=== PATIENT | female | born 1990 | race Caucasian/White ===

== ENCOUNTER 2016-10-11 16:11 | Emergency (ER) | payer MEDICAID ==
[~2016-10-11] VITALS: Ht 165.1 cm; Wt 79.4 kg
[2016-10-11 16:42] LABS: NEG OBC UR NEG; POS OBC UR POS
--- NOTE | 2016-10-11 16:55 | ED.ADGEN ---
Past Medical History Past Medical History: Asthma, Other Additional Past Medical Histor: SEASONAL ALLERGIES Past Surgical History: Alcohol Use: None Drug Use: None Adult General Chief Complaint Chief Complaint: PELVIC PAIN HPI HPI Patient is a 25 year old woman, , history of previous miscarriage, and of infant at 3 days, anemia, who presents to the emergency department with a complaint of abdominal pain and positive for easy test. Patient states that she had a positive test on . States that her last menstrual period was September 03, she has been actively trying to get . She denies any bleeding, states that yesterday she is experiencing abdominal cramping was coming or going in the lower quadrant, states became acutely worse today, located in the central region and radiating up both sides of her abdomen , denies any nausea or vomiting, chest pain or shortness breath, any weakness or tingling, any injuries, any discharge or drainage, any concerns for STI exposures. She states she's been experiencing nausea at the same time, and some lightheadedness, no vomiting, no diarrhea, has been feeling "hot and cold". Is afebrile in the emergency department. No syncope. No urinary complaints. She states that she is actively trying to set up appointments with an OB here at [place], but she's been having difficulty with her insurance. She is currently taking vitamins and iron. Review of Systems Review of Systems Constitutional: Denies fever or chills. [] Eyes: Denies change in visual acuity. [] HENT: Denies nasal congestion or sore throat. [] Respiratory: Denies cough or shortness of breath. [] Cardiovascular: Denies chest pain or edema. [] GI: Denies vomiting, bloody stools or diarrhea. [] Complaining of abdominal pain, cramping, ankle and lower quadrants, associated with nausea. : Denies dysuria. [] Musculoskeletal: Denies back pain or joint pain. [] Integument: Denies rash. [] Neurologic: Denies headache, focal weakness or sensory changes. [] Endocrine: Denies polyuria or polydipsia. [] Lymphatic: Denies swollen glands. [] Psychiatric: Denies depression or anxiety. [] Current Medications Current Medications Current Medications Medications (Trade) Dose Ordered Sig/Segun Start Time Stop Time Status Last Admin Dose Admin Metronidazole (Flagyl) 500 mg 1X ONCE 10/11/16 18:45 10/11/16 18:46 DC 10/11/16 18:52 500 MG Nitrofurantoin Macrocrystals (Macrobid) 100 mg 1X ONCE 10/11/16 18:45 10/11/16 18:46 DC 10/11/16 18:51 100 MG Sodium Chloride (Iv Sodium Chloride 0.9% 1000ml Bag) 1,000 ml @ 1,000 mls/hr Q1H 10/11/16 17:00 10/11/16 17:59 DC 10/11/16 17:48 1,000 MLS/HR Allergies Allergies Allergies Coded Allergies Type Severity Reaction Last Updated Verified Penicillins Allergy Intermediate 10/11/16 Yes cefaclor Allergy Intermediate 10/11/16 Yes Physical Exam Physical Exam Constitutional: Well developed, well nourished, no acute distress, non-toxic appearance. [] HENT: Normocephalic, atraumatic, bilateral external ears normal, oropharynx moist, no oral exudates, nose normal. [] Eyes: PERRLA, EOMI, conjunctiva normal, no discharge. [] Neck: Normal range of motion, no tenderness, supple, no stridor. [] Cardiovascular:Heart rate regular rhythm, no murmur, S1, S2, rubs or gallops. [] Lungs & Thorax: Bilateral breath sounds clear to auscultation, no wheezing, rhonchi, rales. No chest or crepitus or tenderness. [] Abdomen: Bowel sounds normal, soft, mild tenderness palpation in the suprapubic pelvic region, no rebound, rigidity, no guarding, no masses, no pulsatile masses. [] Skin: Warm, dry, no erythema, no rash. [] Back: No tenderness, no CVA tenderness. [] Extremities: No tenderness, no cyanosis, no clubbing, ROM intact, no edema. [] Neurologic: Alert and oriented X 3, normal motor function, normal sensory function, no focal deficits noted. [] Psychologic: Affect normal, judgement normal, mood normal. [] Pelvic examination: External examination is unremarkable, patient with closed os on bimanual examination, mild tenderness palpation in the left adnexal region , no masses palpated. Speculum examination reveals a normal-appearing cervix with a small mount of white discharge. Specimens taken without issue. Current Patient Data Vital Signs Vital Signs Date Time Temp Pulse Resp B/P Pulse Ox O2 Delivery O2 Flow Rate FiO2 10/11/16 19:30 96 128/71 96 Room Air 10/11/16 18:55 18 10/11/16 16:15 97.9 97.9 Lab Values Laboratory Tests Test 10/11/16 16:15 10/11/16 17:20 Urine Collection Type Unknown Urine Color Yellow Urine Clarity Clear Urine pH 6.0 Urine Specific [place] <=1.005 Urine Protein Negativemg/dL (NEG-TRACE) Urine Glucose (UA) Negativemg/dL (NEG) Urine Ketones (Stick) Negativemg/dL (NEG) Urine Blood Negative (NEG) Urine Nitrite Positive (NEG) Urine Bilirubin Negative (NEG) Urine Urobilinogen Dipstick 0.2mg/dL (0.2 mg/dL) Urine Leukocyte Esterase Negative (NEG) Urine RBC 0/HPF (0-2) Urine WBC Occ/HPF (0-4) Urine Squamous Epithelial Cells Few/LPF Urine Bacteria Moderate/HPF (0-FEW) Urine Test Positive (NEG) White Blood Count 16.6x10^3/uL (4.0-11.0) H Red Blood Count 3.98x10^6/uL (3.50-5.40) Hemoglobin 12.6g/dL (12.0-15.5) Hematocrit 37.1% (36.0-47.0) Mean Corpuscular Volume 93fL (79-100) Mean Corpuscular Hemoglobin 32pg (25-35) Mean Corpuscular Hemoglobin Concent 34g/dL (31-37) Red Cell Distribution Width 12.7% (11.5-14.5) Platelet Count 308x10^3/uL (140-400) Neutrophils (%) (Auto) 71% (31-73) Lymphocytes (%) (Auto) 21% (24-48) L Monocytes (%) (Auto) 6% (0-9) Eosinophils (%) (Auto) 2% (0-3) Basophils (%) (Auto) 1% (0-3) Neutrophils # (Auto) 11.9x10^3uL (1.8-7.7) H Lymphocytes # (Auto) 3.4x10^3/uL (1.0-4.8) Monocytes # (Auto) 0.9x10^3/uL (0.0-1.1) Eosinophils # (Auto) 0.3x10^3/uL (0.0-0.7) Basophils # (Auto) 0.1x10^3/uL (0.0-0.2) Maternal Serum HCG Beta Subunit 7136mIU/mL (0-6) H Sodium Level 140mmol/L (136-145) Potassium Level 3.3mmol/L (3.5-5.1) L Chloride Level 102mmol/L (98-107) Carbon Dioxide Level 26mmol/L (21-32) Anion Gap 12 (6-14) Blood Urea Nitrogen 6mg/dL (7-20) L Creatinine 0.7mg/dL (0.6-1.0) Estimated GFR (Cockcroft-Gault) 103.7 BUN/Creatinine Ratio 9 (6-20) Glucose Level 106mg/dL (70-99) H Calcium Level 9.4mg/dL (8.5-10.1) Total Bilirubin 0.3mg/dL (0.2-1.0) Aspartate Amino Transferase (AST) 22U/L (15-37) Alanine Aminotransferase (ALT) 24U/L (14-59) Alkaline Phosphatase 66U/L (46-116) Total Protein 8.4g/dL (6.4-8.2) H Albumin 3.8g/dL (3.4-5.0) Albumin/Globulin Ratio 0.8 (1.0-1.7) L Laboratory Tests 10/11/16 17:20 Laboratory Tests 10/11/16 17:20 Microbiology 10/11/16 Wet Prep - Final, Complete EKG EKG Not indicated. [] Radiology/Procedures Radiology/Procedures [] [facility] [address] [place] [address] IMAGING REPORT Signed PATIENT: GREGORIO WEBB ACCOUNT: [id number] : 1990 LOCATION: ER AGE: 25 SEX: F EXAM STATUS: REG ER ORD. PHYSICIAN: RODRIGUEZ OLIVER DO REASON: Abd pain/preg PROCEDURE: OB <14 WKS W/TV PROCEDURE First trimester OB ultrasound. HISTORY Pelvic pain. TECHNIQUE Transabdominal imaging was initially performed. Transvaginal imaging was also performed to better evaluate the uterus. COMPARISON None. FINDINGS There is a bicornuate uterus. There is a potential gestational sac in the left uterine horn with mean sac diameter of 0.51 centimeters corresponding to a gestational age of 5 weeks 2 days. There appears to be a trophoblastic response. However, no pole, heart tones, or yolk sac are identified. There is no evidence of an implantation bleed. Endometrium appears thickened in the right uterine horn, 15 millimeters. Both maternal ovaries are visualized and grossly unremarkable. There is no free pelvic fluid. Exam is interpreted without HCG level provided. IMPRESSION Potential gestational sac measuring 5 weeks 2 days for an BHARATH by ultrasound of June 11, 2017. However, no pole or heart tones are identified. Correlation with HCG would be of benefit. Serial HCG and short term follow-up ultrasound may be of benefit. Electronically signed by: Varghese Foote MD (Oct 11, 2016 17:39:29) DICTATED and SIGNED BY: VARGHESE FOOTE MD DATE: 10/11/16 1739 CC: RODRIGUEZ OLIVER DO; NO PCP ~ Course & Med Decision Making Course & Med Decision Making Pertinent Labs and Imaging studies reviewed. (See chart for details) Patient with closed os on examination, no bleeding, positive for bacterial vaginosis, no other concerning findings identified. Patient with ultrasound revealed a 5 week 2 day gestational size sac, without pole or heart tones identified, however beta hCG is 7136, correlates with a potentially early her . Based on these findings, I contacted OB on-call, Dr. Marsh, who does have a clinic at [facility] one day a week. She recommends the patient receive beta Quant testing repeat in 48 hours, for follow-up with OB. I did discuss this with patient, patient was also given treatment for metronidazole, first dose of by mouth in the ED without issue. Patient to continue taking her vitamins and her iron, to follow-up in 2 days using the prescription given to her in the ED for repeat beta quadrant, patient does want to follow up at [facility], therefore she was given the contact information for the office of Dr. Pitt, as he is primarily located at [facility], patient is in the process of switching her insurance, will be able to discuss these issues with the office if problems arise of switching her insurance. She was given clear and detailed return instructions with which she voiced understanding and agreement, discharged home in stable condition with plan as above. Dragon Disclaimer Dragon Disclaimer This electronic medical record was generated, in whole or in part, using a voice recognition dictation system. Departure Impression: Primary Impression: Abdominal pain during Additional Impression: Bacterial vaginosis Disposition: HOME, SELF-CARE Condition: IMPROVED Scripts Metronidazole (Flagyl)500 Mg Tablet1 Tab PO BID #14 TAB Prov:RODRIGUEZ OLIVER DO 10/11/16 Nitrofurantoin Macrocrystal (Nitrofurantoin)100 Mg Capsule1 Cap PO BID #14 CAP Prov:RODRIGUEZ OLIVER DO 10/11/16 Problem Qualifiers Primary Impression: Abdominal pain during Trimester: first trimester Qualified Code: O26.891 - Other specified related conditions, first trimester RODRIGUEZ OLIVER DO Oct 11, 2016 16:55
[2016-10-11] MEDS ORDERED: IV NORMAL SALINE 1000ML BAG 1,000 ML IV SCH (17:00)
[2016-10-11 17:30] LABS: BASO # 0.1 x10^3/uL (0.0-0.2); BASO % 1 % (0-3); EOS % 2 % (0-3); HEMATOCRIT 37.1 % (36.0-47.0); HEMOGLOBIN 12.6 g/dL (12.0-15.5); LYMPH # 3.4 x10^3/uL (1.0-4.8); LYMPH % 21 % (24-48); MEAN CORPUSCULAR HEMOGLOBIN 32 pg (25-35); MEAN CORPUSCULAR HGB CONC 34 g/dL (31-37); MEAN CORPUSCULAR VOLUME 93 fL (79-100); MONO % 6 % (0-9); NEUT % 71 % (31-73); PLATELET COUNT 308 x10^3/uL (140-400); RED BLOOD COUNT 3.98 x10^6/uL (3.50-5.40); RED CELL DISTRIBUTION WIDTH 12.7 % (11.5-14.5); WHITE BLOOD COUNT 16.6 x10^3/uL (4.0-11.0)
--- NOTE | 2016-10-11 17:40 | RAD ---
PROCEDURE First trimester OB ultrasound. HISTORY Pelvic pain. TECHNIQUE Transabdominal imaging was initially performed. Transvaginal imaging was also performed to better evaluate the uterus. COMPARISON None. FINDINGS There is a bicornuate uterus. There is a potential gestational sac in the left uterine horn with mean sac diameter of 0.51 centimeters corresponding to a gestational age of 5 weeks 2 days. There appears to be a trophoblastic response. However, no pole, heart tones, or yolk sac are identified. There is no evidence of an implantation bleed. Endometrium appears thickened in the right uterine horn, 15 millimeters. Both maternal ovaries are visualized and grossly unremarkable. There is no free pelvic fluid. Exam is interpreted without HCG level provided. IMPRESSION Potential gestational sac measuring 5 weeks 2 days for an BHARATH by ultrasound of June 11, 2017. However, no pole or heart tones are identified. Correlation with HCG would be of benefit. Serial HCG and short term follow-up ultrasound may be of benefit. Electronically signed by: Varghese Foote MD (Oct 11, 2016 17:39:29)
[2016-10-11 17:41] LABS: BILIRUBIN,URINE NEGATIVE (NEG); GLUCOSE,URINE NEGATIVE (NEG); NITRITE,URINE POSITIVE (NEG); PROTEIN,URINE NEGATIVE (NEG-TRACE); UROBILINOGEN,URINE 0.2 mg/dL (0.2 mg/dL)
[2016-10-11 17:46] LABS: BACTERIA,URINE MODERATE /HPF (0-FEW); RBC,URINE 0 /HPF (0-2); SQUAMOUS EPITHELIAL CELL,UR FEW /LPF; WBC,URINE OCC /HPF (0-4)
[2016-10-11 17:58] LABS: CALCIUM 9.4 mg/dL (8.5-10.1); CREATININE 0.7 mg/dL (0.6-1.0); GFR 103.7; POTASSIUM 3.3 mmol/L (3.5-5.1)
[2016-10-11 18:04] LABS: ALBUMIN 3.8 g/dL (3.4-5.0); ALBUMIN/GLOBULIN RATIO 0.8 (1.0-1.7); TOTAL BILIRUBIN 0.3 mg/dL (0.2-1.0); TOTAL PROTEIN 8.4 g/dL (6.4-8.2)
[2016-10-11] MEDS ORDERED: NITROFURANTOIN MONOHYD/M-CRYST 100 MG CAPSULE. PO ONE (18:45)
[2016-10-11] MEDS ORDERED: METRONIDAZOLE 500 MG TABLET. PO ONE (18:45)
[2016-10-11 19:30] VITALS: BP 128/71
[2016-10-11] MEDS ORDERED: NITR100C PO (20:08)
[2016-10-11] MEDS ORDERED: METR500T PO (20:08)
== END 2016-10-11 20:23 | disposition home or self-care (01) ==
LOC: ER 16:11
DX: O23.591 Infection of other part of genital tract in pregnancy, first trimester (principal); N76.0 Acute vaginitis; J45.909 Unspecified asthma, uncomplicated; Z3A.01 Less than 8 weeks gestation of pregnancy; Z88.0 Allergy status to penicillin; Z88.8 Allergy status to other drugs, medicaments and biological substances; Z98.890 Other specified postprocedural states
CPT/HCPCS: 36415; 76801; 76817; 80053; 81001; 81025; 84702; 85027; 86850; 86900; 86901; 87086; 87491; 87591; 96360; 99285; J7030; Q0111

== ENCOUNTER → 2016-10-13 | Outpatient (CLI) | payer MEDICAID ==
[2016-10-12 12:29] VITALS: BP 126/70
[~2016-10-13] MED LIST: METR500T PO; NITR100C PO
== END | disposition home or self-care (01) ==
LOC: LAB 19:42
PROVIDERS: ATTEND Obstetrics & Gynecology
DX: R10.9 Unspecified abdominal pain (principal)
CPT/HCPCS: 36415; 84702

== ENCOUNTER 2016-11-17 21:07 | Emergency (ER) | payer MEDICAID, OTHER ==
[~2016-11-17] VITALS: Ht 162.6 cm; Wt 79.8 kg
[2016-11-17 21:45] LABS: BASO % 0 % (0-3); EOS % 2 % (0-3); HEMATOCRIT 35.3 % (36.0-47.0); LYMPH % 19 % (24-48); MEAN CORPUSCULAR HEMOGLOBIN 32 pg (25-35); MEAN CORPUSCULAR HGB CONC 34 g/dL (31-37); MEAN CORPUSCULAR VOLUME 94 fL (79-100); MONO % 6 % (0-9); NEUT % 72 % (31-73); PLATELET COUNT 313 x10^3/uL (140-400); RED BLOOD COUNT 3.75 x10^6/uL (3.50-5.40); RED CELL DISTRIBUTION WIDTH 13.2 % (11.5-14.5); WHITE BLOOD COUNT 15.4 x10^3/uL (4.0-11.0)
[2016-11-17 21:45] LABS: BILIRUBIN,URINE NEGATIVE (NEG); GLUCOSE,URINE NEGATIVE (NEG); NITRITE,URINE NEGATIVE (NEG); PROTEIN,URINE NEGATIVE (NEG-TRACE)
[2016-11-17 21:51] LABS: RBC,URINE OCC /HPF (0-2)
[2016-11-17 21:52] LABS: BACTERIA,URINE 0 /HPF (0-FEW); SQUAMOUS EPITHELIAL CELL,UR FEW /LPF; WBC,URINE OCC /HPF (0-4)
[2016-11-17 21:59] LABS: CALCIUM 8.8 mg/dL (8.5-10.1); CREATININE 0.5 mg/dL (0.6-1.0); GFR 151.6; POTASSIUM 3.9 mmol/L (3.5-5.1)
--- NOTE | 2016-11-17 22:50 | RAD ---
PROCEDURE Obstetrics sonogram. HISTORY Vaginal bleeding. TECHNIQUE Trans abdominal and transvaginal sonographic imaging of the pelvis was performed. COMPARISON 10/11/2016. FINDINGS The uterus measures 9.7 x 9.1 x 7.8 cm. There is an intrauterine gestational sac with pole and yolk sac. The crown-rump length is 3.71 cm, corresponding with an estimated gestational age of 10 weeks and 4 days. The heart rate is 162 beats per minute. There is a 2.1 x 1.6 x 1.5 cm subchorionic hematoma along the inferior aspect of the gestational sac and suspected smaller subchronic hematoma measuring 1.1 cm along the superior gestational sac. The ovaries are normal in size. There is normal blood flow within both ovaries. There is a 2.2 cm right corpus luteum cyst. There is no pelvic free fluid. IMPRESSION 1. Single intrauterine fetus with an estimated gestational age based on ultrasound measurements of 10 weeks and 4 days and heart rate of 162 beats per minute. 2. 2.1 cm inferior subchronic hematoma with possible smaller superior subchronic hematoma measuring 1.1 cm. 3. 2.2 cm right corpus luteum cyst. Electronically signed by: Elisha Vega (Nov 17, 2016 22:48:51)
--- NOTE | 2016-11-17 22:54 | PHYS DOC ---
Past Medical History Past Medical History: Anemia, Asthma, Other Additional Past Medical Histor: SEASONAL ALLERGIES Past Surgical History: Alcohol Use: None Drug Use: None Adult General Chief Complaint Chief Complaint: VAGINAL BLEEDING HPI HPI 68-year-old male presenting to the emergency Department today with left lower quadrant to suprapubic abdominal pain with watery stools and chills at home. He denies chest pain shortness of breath. His pain is moderate nonradiating intermittent worse with urination and without alleviating factors. Review of systems is negative for chest pain shortness of breath headache or vomiting. All other review of systems is negative. Review of Systems Review of Systems see above Allergies Allergies Allergies Coded Allergies Type Severity Reaction Last Updated Verified Penicillins Allergy Intermediate 10/11/16 Yes cefaclor Allergy Intermediate 10/11/16 Yes Physical Exam Physical Exam Constitutional: Well developed, well nourished, no acute distress, non-toxic appearance. HENT: Normocephalic, atraumatic, bilateral external ears normal, oropharynx moist, no oral exudates, nose normal. [] Eyes: PERRLA, EOMI, conjunctiva normal, no discharge. Neck: Normal range of motion, no tenderness, supple, no stridor. [] Cardiovascular:Heart rate regular rhythm, no murmur [] Lungs & Thorax: Bilateral breath sounds clear to auscultation Abdomen: Bowel sounds normal, soft, no tenderness, no masses, no pulsatile masses. vaginal exam performed in the presence of female nurse shows blood in the vaginal vault with a closed cervical os. Skin: Warm, dry, no erythema, no rash. [] Back: No tenderness, no CVA tenderness. Extremities: No tenderness, no cyanosis, no clubbing, ROM intact, no edema. Neurologic: Alert and oriented X 3, normal motor function, normal sensory function, no focal deficits noted. [] Psychologic: Affect normal, judgement normal, mood normal. Current Patient Data Vital Signs Vital Signs Date Time Temp Pulse Resp B/P Pulse Ox O2 Delivery O2 Flow Rate FiO2 11/17/16 23:20 83 18 94/65 99 Room Air 11/17/16 21:32 98.2 98.2 Lab Values Laboratory Tests Test 11/17/16 21:28 11/17/16 21:30 11/17/16 21:33 White Blood Count 15.4x10^3/uL (4.0-11.0) H Red Blood Count 3.75x10^6/uL (3.50-5.40) Hemoglobin 12.0g/dL (12.0-15.5) Hematocrit 35.3% (36.0-47.0) L Mean Corpuscular Volume 94fL (79-100) Mean Corpuscular Hemoglobin 32pg (25-35) Mean Corpuscular Hemoglobin Concent 34g/dL (31-37) Red Cell Distribution Width 13.2% (11.5-14.5) Platelet Count 313x10^3/uL (140-400) Neutrophils (%) (Auto) 72% (31-73) Lymphocytes (%) (Auto) 19% (24-48) L Monocytes (%) (Auto) 6% (0-9) Eosinophils (%) (Auto) 2% (0-3) Basophils (%) (Auto) 0% (0-3) Neutrophils # (Auto) 11.2x10^3uL (1.8-7.7) H Lymphocytes # (Auto) 3.0x10^3/uL (1.0-4.8) Monocytes # (Auto) 1.0x10^3/uL (0.0-1.1) Eosinophils # (Auto) 0.3x10^3/uL (0.0-0.7) Basophils # (Auto) 0.0x10^3/uL (0.0-0.2) Sodium Level 137mmol/L (136-145) Potassium Level 3.9mmol/L (3.5-5.1) Chloride Level 104mmol/L (98-107) Carbon Dioxide Level 22mmol/L (21-32) Anion Gap 11 (6-14) Blood Urea Nitrogen 9mg/dL (7-20) Creatinine 0.5mg/dL (0.6-1.0) L Estimated GFR (Cockcroft-Gault) 151.6 Glucose Level 110mg/dL (70-99) H Calcium Level 8.8mg/dL (8.5-10.1) Urine Collection Type Unknown Urine Color Yellow Urine Clarity Clear Urine pH 7.0 Urine Specific [place] >=1.030 Urine Protein Negativemg/dL (NEG-TRACE) Urine Glucose (UA) Negativemg/dL (NEG) Urine Ketones (Stick) Negativemg/dL (NEG) Urine Blood Small (NEG) Urine Nitrite Negative (NEG) Urine Bilirubin Negative (NEG) Urine Urobilinogen Dipstick 1.0mg/dL (0.2 mg/dL) Urine Leukocyte Esterase Negative (NEG) Urine RBC Occ/HPF (0-2) Urine WBC Occ/HPF (0-4) Urine Squamous Epithelial Cells Few/LPF Urine Bacteria 0/HPF (0-FEW) Urine Mucus Mod/LPF POC Urine HCG, Qualitative Hcg positive (Negative) Laboratory Tests 11/17/16 21:28 Laboratory Tests 11/17/16 21:28 EKG EKG [] Radiology/Procedures Radiology/Procedures [] Course & Med Decision Making Course & Med Decision Making Pertinent Labs and Imaging studies reviewed. (See chart for details) []26-year-old female presenting to the emergency Department with vaginal bleeding in the first trimester. Vital signs unremarkable. Abdomen is soft and nontender. Ultrasound showed intrauterine without evidence of ectopic . Rh positive present. Cervical os was closed on exam. patient was subsequent discharged home to follow up with spinning room worker over the next 2 to 3 days. Dragon Disclaimer Dragon Disclaimer This electronic medical record was generated, in whole or in part, using a voice recognition dictation system. Departure Departure Impression: Primary Impression: Threatened miscarriage Disposition: 01 HOME, SELF-CARE Condition: STABLE Referrals: NO PCP (PCP) SANDY GALAVIZ MD Patient Instructions: Threatened Miscarriage Additional Instructions: Thank you for allowing us to participate in your care today. Followup with your primary care physician in 3 days if your symptoms do not improve. If you do not have a primary care provider you can ask for a list of our primary care providers. Return to the emergency department you have any new or concerning findings. This should be evaluated by the primary care physician and any necessary consulting services for continued management within a few days after discharge. Return to emergency room if you have any new or concerning symptoms including but not limited to fever, chills, nausea, vomiting, intractable pain, any new rashes, chest pain, shortness of air, uncontrolled bleeding, difficulty breathing, and/or vision loss. FELIPE BAUTISTA MD Nov 17, 2016 22:54
[2016-11-17 23:20] VITALS: BP 94/65
== END 2016-11-17 23:55 | disposition home or self-care (01) ==
LOC: ER 21:07
DX: O20.0 Threatened abortion (principal); J45.909 Unspecified asthma, uncomplicated; Z3A.10 10 weeks gestation of pregnancy; Z88.1 Allergy status to other antibiotic agents; Z88.8 Allergy status to other drugs, medicaments and biological substances
CPT/HCPCS: 36415; 76801; 80048; 81001; 81025; 85027; 99285-25

== ENCOUNTER 2016-12-29 12:38 | Emergency (ER) | payer SELFPAY ==
[~2016-12-29] VITALS: Ht 165.1 cm; Wt 77.1 kg
[2016-12-29 13:42] LABS: BILIRUBIN,URINE NEGATIVE (NEG); GLUCOSE,URINE NEGATIVE (NEG); NITRITE,URINE NEGATIVE (NEG); PROTEIN,URINE NEGATIVE (NEG-TRACE); UROBILINOGEN,URINE 0.2 mg/dL (0.2 mg/dL)
[2016-12-29] MEDS ORDERED: ACETAMINOPHEN 500 MG TABLET PO ONE (13:45)
[2016-12-29 13:56] LABS: BACTERIA,URINE FEW /HPF (0-FEW); RBC,URINE 0 /HPF (0-2); SQUAMOUS EPITHELIAL CELL,UR MOD /LPF; WBC,URINE RARE /HPF (0-4)
--- NOTE | 2016-12-29 14:11 | PHYS DOC ---
Past Medical History Past Medical History: Anemia, Asthma, Other Additional Past Medical Histor: SEASONAL ALLERGIES Past Surgical History: Additional Information: 0.5 PPD Alcohol Use: None Drug Use: None Adult General Chief Complaint Chief Complaint: ABDOMINAL PAIN IN HPI HPI Patient is a 26 year old female approx 4 months who presents with mild crampy lower abdominal pains for the past few days. Notes mild nausea associated with blurry vision this a.m. that has resolved. She denies cough, vomiting, fever or chills, dysuria, hematuria, vaginal bleeding, diarrhea Review of Systems Review of Systems Constitutional: Denies fever or chills [] Eyes: Denies change in visual acuity, redness, or eye pain [] HENT: Denies nasal congestion or sore throat [] Respiratory: Denies cough or shortness of breath [] Cardiovascular: No additional information not addressed in HPI [] GI: Denies vomiting, bloody stools or diarrhea [] : Denies dysuria or hematuria [] Musculoskeletal: Denies back pain or joint pain [] Integument: Denies rash or skin lesions [] Neurologic: Denies headache, focal weakness or sensory changes [] Endocrine: Denies polyuria or polydipsia [] Current Medications Current Medications Current Medications Medications (Trade) Dose Ordered Sig/Segun Start Time Stop Time Status Last Admin Dose Admin Acetaminophen (Tylenol) 500 mg 1X ONCE 12/29/16 13:45 12/29/16 13:46 DC Allergies Allergies Allergies Coded Allergies Type Severity Reaction Last Updated Verified Penicillins Allergy Intermediate 10/11/16 Yes cefaclor Allergy Intermediate 10/11/16 Yes Physical Exam Physical Exam Constitutional: Well developed, well nourished, no acute distress, non-toxic appearance. [] HENT: Normocephalic, atraumatic, bilateral external ears normal, oropharynx moist, nose normal. [] Eyes: PERRLA, EOMI. [] Neck: Normal range of motion, supple. [] Cardiovascular:Heart rate regular rhythm [] Lungs & Thorax: Bilateral breath sounds clear to auscultation [] Abdomen: Bowel sounds normal, soft, no tenderness. Gravid below umbilicus [] Skin: Warm, dry, no erythema, no rash. [] Back: No tenderness, no CVA tenderness. [] Extremities: No tenderness, ROM intact, no edema. [] Neurologic: Alert and oriented X 3, normal motor function, normal sensory function, no focal deficits noted. [] Psychologic: Affect normal, judgement normal, mood normal. [] Current Patient Data Vital Signs Vital Signs Date Time Temp Pulse Resp B/P Pulse Ox O2 Delivery O2 Flow Rate FiO2 12/29/16 14:25 77 18 131/75 98 Room Air 12/29/16 13:12 98 98.0 Lab Values Laboratory Tests Test 12/29/16 12:31 12/29/16 13:25 12/29/16 13:54 POC Urine HCG, Qualitative Hcg positive (Negative) Urine Collection Type Void Urine Color Yellow Urine Clarity Clear Urine pH 7.0 Urine Specific [place] <=1.005 Urine Protein Negativemg/dL (NEG-TRACE) Urine Glucose (UA) Negativemg/dL (NEG) Urine Ketones (Stick) Negativemg/dL (NEG) Urine Blood Negative (NEG) Urine Nitrite Negative (NEG) Urine Bilirubin Negative (NEG) Urine Urobilinogen Dipstick 0.2mg/dL (0.2 mg/dL) Urine Leukocyte Esterase Negative (NEG) Urine RBC 0/HPF (0-2) Urine WBC Rare/HPF (0-4) Urine Squamous Epithelial Cells Mod/LPF Urine Bacteria Few/HPF (0-FEW) POC Hemoglobin 11.9g/dL (12-15) L POC Hematocrit 35% (36-40) L POC Sodium 136mmol/L (135-145) POC Potassium 3.8mmol/L (3.5-5.0) POC Chloride 106mmol/L (98-110) POC Total CO2 20mmol/L (23-32) L Anion Gap 14mmol/L (6-14) POC Blood Urea Nitrogen 4mg/dL (8-26) L POC Creatinine 0.4mg/dL (0.5-1.4) L Glucose Level 75mg/dL (70-99) POC Ionized Calcium ([place]) 1.10mmol/L (1.13-1.32) L Laboratory Tests 12/29/16 13:54 Course & Med Decision Making Course & Med Decision Making Pertinent Labs and Imaging studies reviewed. (See chart for details) Bedside ultrasound as performed and interpreted by me showing single IUP with heart rate 133. Workup is unremarkable. Discussed symptomatic care. Encouraged OB follow-up. Return precautions given. She understands and agrees with plan. Dragon Disclaimer Dragon Disclaimer This electronic medical record was generated, in whole or in part, using a voice recognition dictation system. Departure Departure Impression: Primary Impression: Abdominal pain during Disposition: 01 HOME, SELF-CARE Condition: STABLE Referrals: NO PCP (PCP) Patient Instructions: Abdominal Pain During , [id number] Additional Instructions: Take Tylenol as needed for pain. Follow-up with your OB doctor. Return for any concerns. Problem Qualifiers Primary Impression: Abdominal pain during Trimester: second trimester Qualified Code: O26.892 - Other specified related conditions, second trimester Jonny MCFARLAND MD Dec 29, 2016 14:11
[2016-12-29 14:16] LABS: POTASSIUM ISTAT 3.8 mmol/L (3.5-5.0)
[2016-12-29 14:25] VITALS: BP 131/75
== END 2016-12-29 14:28 | disposition home or self-care (01) ==
LOC: ER 12:38
DX: O26.892 Other specified pregnancy related conditions, second trimester (principal); R10.30 Lower abdominal pain, unspecified; R11.0 Nausea; O99.512 Diseases of the respiratory system complicating pregnancy, second trimester; J45.909 Unspecified asthma, uncomplicated; O99.332 Smoking (tobacco) complicating pregnancy, second trimester; Z3A.00 Weeks of gestation of pregnancy not specified; Z88.1 Allergy status to other antibiotic agents; Z88.0 Allergy status to penicillin
CPT/HCPCS: 80047; 81001; 81025; 99285

== ENCOUNTER → 2017-02-13 | Outpatient (CLI) | payer OTHER ==
--- NOTE | 2017-02-13 11:38 | RAD ---
Exam performed: OB sonogram second trimester. Indication: Anatomical survey. Date of Service: 02/13/17 Comparison: 11/17/16. Technique: Transabdominal . Findings: Single into uterine fetus is seen in breech presentation. The maturity is as follows. BPD 5.67 cm 23 weeks 2 days Head circumference 20.89 cm 23 weeks 0 days Abdominal circumference 17.64cm 22 weeks 4 days Femur length 4.17 cm 23 weeks 4 days HC to AC ratio is 1.18 Estimated weight is 554 grams. The composite maturity is 23 weeks and 1 days with a sonographic EDC of 9417 There is adequate amniotic fluid volume with ANNA of 11.8 cm. The cervix is not well seen heart rate measures 145 beats per minute. Normal movement and cardiac activity seen. Normal four-chamber heart is seen Normal three-vessel cord is seen. Abdominal wall cord insertion is normal Fluid-filled stomach and urinary bladder are normal. Bilateral kidneys are normal. Normal craniocervical junction and entire spine is normal Placenta is fundal. Impression: Single live intrauterine fetus in breech presentation of maturity 23 weeks and 1 days with a heart rate of 145 beats per minute
== END | disposition home or self-care (01) ==
LOC: US 13:45
PROVIDERS: ATTEND Obstetrics & Gynecology
DX: O09.92 Supervision of high risk pregnancy, unspecified, second trimester (principal); O26.842 Uterine size-date discrepancy, second trimester; Z3A.23 23 weeks gestation of pregnancy
CPT/HCPCS: 76805

== ENCOUNTER 2017-03-08 21:11 | Observation (INO) | payer OTHER ==
[2017-03-08] MEDS ORDERED: IV RINGERS,LACTATED 1000ML 1,000 ML IV SCH (23:00)
[2017-03-08 23:01] LABS: BILIRUBIN,URINE NEGATIVE (NEG); GLUCOSE,URINE NEGATIVE (NEG); NITRITE,URINE NEGATIVE (NEG); PROTEIN,URINE NEGATIVE (NEG-TRACE); UROBILINOGEN,URINE 0.2 mg/dL (0.2 mg/dL)
[2017-03-08 23:06] LABS: BACTERIA,URINE MODERATE /HPF (0-FEW); RBC,URINE 0 /HPF (0-2); SQUAMOUS EPITHELIAL CELL,UR MOD /LPF
== END 2017-03-08 23:20 | disposition home or self-care (01) ==
LOC: 3 SO LND 21:11
PROVIDERS: ADMIT Obstetrics & Gynecology; ATTEND Obstetrics & Gynecology
DX: O36.8120 Decreased fetal movements, second trimester, not applicable or unspecified (principal); Z3A.26 26 weeks gestation of pregnancy
CPT/HCPCS: 81001; 87086; G0378; G0379

== ENCOUNTER 2017-04-04 11:23 | Observation (INO) | payer OTHER ==
[2017-04-04] MEDS ORDERED: IV RINGERS,LACTATED 1000ML 1,000 ML IV SCH (11:59)
[2017-04-04 12:18] LABS: BILIRUBIN,URINE NEGATIVE (NEG); GLUCOSE,URINE NEGATIVE (NEG); NITRITE,URINE NEGATIVE (NEG); PH,URINE 6.5; PROTEIN,URINE NEGATIVE (NEG-TRACE); UROBILINOGEN,URINE 0.2 mg/dL (0.2 mg/dL)
[2017-04-04 12:24] LABS: BACTERIA,URINE 0 /HPF (0-FEW); RBC,URINE 0 /HPF (0-2); SQUAMOUS EPITHELIAL CELL,UR FEW /LPF
== END 2017-04-04 15:10 | disposition home or self-care (01) ==
LOC: 3 SO LND 11:23
PROVIDERS: ADMIT Obstetrics & Gynecology; ATTEND Obstetrics & Gynecology
DX: O26.893 Other specified pregnancy related conditions, third trimester (principal); R10.9 Unspecified abdominal pain; Z3A.30 30 weeks gestation of pregnancy
CPT/HCPCS: 81001; G0378; G0379

== ENCOUNTER 2017-04-22 12:23 | Emergency (ER) | payer OTHER ==
[~2017-04-22] VITALS: Ht 167.6 cm; Wt 93.0 kg
--- NOTE | 2017-04-22 12:55 | PHYS DOC ---
Past Medical History Past Medical History: Anemia, Asthma, Other Additional Past Medical Histor: SEASONAL ALLERGIES Past Surgical History: Alcohol Use: None Drug Use: None Adult General Chief Complaint Chief Complaint: OTHER COMPLAINTS HPI HPI 26 yo female presenting to the emergency department today with swelling in her feet and hands that started yesterday. She also reports swelling of her forehead. She is approximately 33 weeks by last menstrual period. Her dispatcher ship pilot is Dr. Espinoza. Triage vital signs afebrile with mild tachycardia. Patient's blood pressure was elevated at 147/70 initially here in the emergency room. She denies any pain. Onset today. Location generalized. Duration constant. No alleviating or exacerbating factors present. Review of systems is negative for chest pain shortness of breath nausea vomiting fevers chills. She denies vision changes. All other review of systems is negative unless otherwise noted in history of present illness. ED course: 26-year-old female presenting to the emergency department today with swelling in her legs and found to be hypertensive here on triage vital signs. Concern for possible new-onset preeclampsia. I discussed the case with Dr. Marsh our dispatcher ship pilot. Urinalysis negative for protein. Blood work shows low albumin. This could be the cause of the patient's symptoms. I felt the patient' s symptoms were mostly related to and after discussing it with Dr. Rolle the patient was seen at labor and delivery for further evaluation workup and care. Review of Systems Review of Systems SEE ABOVE. Allergies Allergies Allergies Coded Allergies Type Severity Reaction Last Updated Verified Penicillins Allergy Intermediate 10/11/16 Yes cefaclor Allergy Intermediate 10/11/16 Yes Physical Exam Physical Exam SEE ABOVE Constitutional: Well developed, well nourished, no acute distress, non-toxic appearance. [] HENT: Normocephalic, atraumatic, bilateral external ears normal, oropharynx moist, no oral exudates, nose normal. [] Eyes: PERRLA, EOMI, conjunctiva normal, no discharge. [] Neck: Normal range of motion, no tenderness, supple, no stridor. [] Cardiovascular:Heart rate regular rhythm, no murmur [] Lungs & Thorax: Bilateral breath sounds clear to auscultation [] Abdomen: gravid abd. uterus palpable above the umbulicus. Bowel sounds normal, soft, no tenderness, no pulsatile masses. [] Skin: Warm, dry, no erythema, no rash. [] Back: No tenderness, no CVA tenderness. [] Extremities: No tenderness, no cyanosis, no clubbing, ROM intact, 1+ edema. [] Neurologic: Alert and oriented X 3, normal motor function, normal sensory function, no focal deficits noted. [] Psychologic: Affect normal, judgement normal, mood normal. [] Current Patient Data Vital Signs Vital Signs Date Time Temp Pulse Resp B/P (MAP) Pulse Ox O2 Delivery O2 Flow Rate FiO2 04/22/17 12:25 98.2 107 18 147/70 (95) 97 Room Air 98.2 Lab Values Laboratory Tests Test 04/22/17 13:00 04/22/17 13:03 White Blood Count 14.3 x10^3/uL (4.0-11.0) H Red Blood Count 3.57 x10^6/uL (3.50-5.40) Hemoglobin 11.6 g/dL (12.0-15.5) L Hematocrit 33.2 % (36.0-47.0) L Mean Corpuscular Volume 93 fL (79-100) Mean Corpuscular Hemoglobin 33 pg (25-35) Mean Corpuscular Hemoglobin Concent 35 g/dL (31-37) Red Cell Distribution Width 12.2 % (11.5-14.5) Platelet Count 299 x10^3/uL (140-400) Neutrophils (%) (Auto) 81 % (31-73) H Lymphocytes (%) (Auto) 12 % (24-48) L Monocytes (%) (Auto) 5 % (0-9) Eosinophils (%) (Auto) 2 % (0-3) Basophils (%) (Auto) 0 % (0-3) Neutrophils # (Auto) 11.7 x10^3uL (1.8-7.7) H Lymphocytes # (Auto) 1.7 x10^3/uL (1.0-4.8) Monocytes # (Auto) 0.7 x10^3/uL (0.0-1.1) Eosinophils # (Auto) 0.3 x10^3/uL (0.0-0.7) Basophils # (Auto) 0.1 x10^3/uL (0.0-0.2) Sodium Level 141 mmol/L (136-145) Potassium Level 3.4 mmol/L (3.5-5.1) L Chloride Level 107 mmol/L (98-107) Carbon Dioxide Level 23 mmol/L (21-32) Anion Gap 11 (6-14) Blood Urea Nitrogen 7 mg/dL (7-20) Creatinine 0.6 mg/dL (0.6-1.0) Estimated GFR (Cockcroft-Gault) 122.8 Glucose Level 154 mg/dL (70-99) H Calcium Level 8.0 mg/dL (8.5-10.1) L Total Bilirubin 0.2 mg/dL (0.2-1.0) Direct Bilirubin < 0.1 mg/dL (0.0-0.2) Aspartate Amino Transferase (AST) 12 U/L (15-37) L Alanine Aminotransferase (ALT) 13 U/L (14-59) L Alkaline Phosphatase 128 U/L (46-116) H Total Protein 6.3 g/dL (6.4-8.2) L Albumin 2.3 g/dL (3.4-5.0) L Urine Collection Type Unknown Urine Color Yanely Urine Clarity Clear Urine pH 6.0 Urine Specific [place] 1.025 Urine Protein Negative mg/dL (NEG-TRACE) Urine Glucose (UA) Negative mg/dL (NEG) Urine Ketones (Stick) Negative mg/dL (NEG) Urine Blood Negative (NEG) Urine Nitrite Negative (NEG) Urine Bilirubin Negative (NEG) Urine Urobilinogen Dipstick 1.0 mg/dL (0.2 mg/dL) Urine Leukocyte Esterase Negative (NEG) Urine RBC 0 /HPF (0-2) Urine WBC 0 /HPF (0-4) Urine Squamous Epithelial Cells Many /LPF Urine Bacteria 0 /HPF (0-FEW) Urine Mucus Marked /LPF Laboratory Tests 04/22/17 13:00 Laboratory Tests 04/22/17 13:00 EKG EKG [] Radiology/Procedures Radiology/Procedures [] Course & Med Decision Making Course & Med Decision Making Pertinent Labs and Imaging studies reviewed. (See chart for details) [] Dragon Disclaimer Dragon Disclaimer This electronic medical record was generated, in whole or in part, using a voice recognition dictation system. Departure Departure Impression: Primary Impression: Edema Additional Impression: Hypertension Disposition: ADMITTED INPATIENT Condition: STABLE Referrals: NO PCP (PCP) PEGHEE,ANNIE G Jr MD Patient Instructions: Hypertension During Additional Instructions: Thank you for allowing us to participate in your care today. Followup with your OB dr dye in 2-3 days. Call your Primary Doctor tomorrow and inform them of your visit today. If you do not have a primary care provider you can ask for a list of our primary care providers. Return to the emergency department you have any new or concerning findings. This should be evaluated by the primary care physician and any necessary consulting services for continued management within a few days after discharge. Return to emergency room if you have any new or concerning symptoms including but not limited to fever, chills, nausea, vomiting, intractable pain, any new rashes, chest pain, shortness of air, uncontrolled bleeding, difficulty breathing, and/or vision loss. Problem Qualifiers FELIPE BAUTISTA MD Apr 22, 2017 12:55
[2017-04-22 13:15] LABS: BILIRUBIN,URINE NEGATIVE (NEG); GLUCOSE,URINE NEGATIVE (NEG); NITRITE,URINE NEGATIVE (NEG); PROTEIN,URINE NEGATIVE (NEG-TRACE)
[2017-04-22 13:21] LABS: BASO # 0.1 x10^3/uL (0.0-0.2); BASO % 0 % (0-3); EOS % 2 % (0-3); HEMATOCRIT 33.2 % (36.0-47.0); HEMOGLOBIN 11.6 g/dL (12.0-15.5); LYMPH # 1.7 x10^3/uL (1.0-4.8); LYMPH % 12 % (24-48); MEAN CORPUSCULAR HEMOGLOBIN 33 pg (25-35); MEAN CORPUSCULAR HGB CONC 35 g/dL (31-37); MEAN CORPUSCULAR VOLUME 93 fL (79-100); MONO % 5 % (0-9); NEUT % 81 % (31-73); PLATELET COUNT 299 x10^3/uL (140-400); RED BLOOD COUNT 3.57 x10^6/uL (3.50-5.40); RED CELL DISTRIBUTION WIDTH 12.2 % (11.5-14.5); WHITE BLOOD COUNT 14.3 x10^3/uL (4.0-11.0)
[2017-04-22 13:22] LABS: ANION GAP 11 (6-14); BLOOD UREA NITROGEN 7 mg/dL (7-20); CARBON DIOXIDE 23 mmol/L (21-32); CHLORIDE 107 mmol/L (98-107); CREATININE 0.6 mg/dL (0.6-1.0); GFR 122.8; GLUCOSE 154 mg/dL (70-99); POTASSIUM 3.4 mmol/L (3.5-5.1); SODIUM 141 mmol/L (136-145)
[2017-04-22 13:26] LABS: BACTERIA,URINE 0 /HPF (0-FEW); RBC,URINE 0 /HPF (0-2); SQUAMOUS EPITHELIAL CELL,UR MANY /LPF; WBC,URINE 0 /HPF (0-4)
[2017-04-22 13:27] LABS: ALBUMIN 2.3 g/dL (3.4-5.0); ALK PHOS 128 U/L (46-116); ALT (SGPT) 13 U/L (14-59); AST (SGOT) 12 U/L (15-37); DIRECT BILIRUBIN < 0.1 mg/dL (0.0-0.2); TOTAL BILIRUBIN 0.2 mg/dL (0.2-1.0); TOTAL PROTEIN 6.3 g/dL (6.4-8.2)
== END 2017-04-22 13:05 | disposition other institution (70) ==
LOC: ER 12:23
DX: O26.893 Other specified pregnancy related conditions, third trimester (principal); R60.9 Edema, unspecified; R00.0 Tachycardia, unspecified; O16.3 Unspecified maternal hypertension, third trimester; O99.513 Diseases of the respiratory system complicating pregnancy, third trimester; J45.909 Unspecified asthma, uncomplicated; Z88.0 Allergy status to penicillin; Z88.8 Allergy status to other drugs, medicaments and biological substances; Z3A.33 33 weeks gestation of pregnancy
CPT/HCPCS: 36415; 80048; 80076; 81001; 85027; 99285-25

== ENCOUNTER 2017-04-22 13:05 | Observation (INO) | payer OTHER ==
[2017-04-22 12:25] VITALS: BP 147/70
[2017-04-22] MEDS ORDERED: IV RINGERS,LACTATED 1000ML 1,000 ML IV SCH (15:03)
== END 2017-04-22 14:25 | disposition home or self-care (01) ==
LOC: 3 SO LND 13:05
PROVIDERS: ADMIT Obstetrics & Gynecology; ATTEND Obstetrics & Gynecology
DX: O12.03 Gestational edema, third trimester (principal); O26.893 Other specified pregnancy related conditions, third trimester; L55.9 Sunburn, unspecified; Z3A.33 33 weeks gestation of pregnancy
CPT/HCPCS: G0378; G0379

== ENCOUNTER 2017-05-22 11:27 | Observation (INO) | payer OTHER ==
[2017-05-22] MEDS ORDERED: IV RINGERS,LACTATED 1000ML 1,000 ML IV SCH (11:56)
[2017-05-22 12:05] LABS: BILIRUBIN,URINE NEGATIVE (NEG); GLUCOSE,URINE NEGATIVE (NEG); NITRITE,URINE NEGATIVE (NEG); PH,URINE 6.5; PROTEIN,URINE 30 mg/dL (NEG-TRACE); UROBILINOGEN,URINE 0.2 mg/dL (0.2 mg/dL)
[2017-05-22 12:22] LABS: BACTERIA,URINE FEW /HPF (0-FEW); RBC,URINE 0 /HPF (0-2); SQUAMOUS EPITHELIAL CELL,UR MOD /LPF
[2017-05-22 12:41] LABS: CALCIUM 8.7 mg/dL (8.5-10.1); CREATININE 0.6 mg/dL (0.6-1.0); GFR 122.8; POTASSIUM 4.1 mmol/L (3.5-5.1)
[2017-05-22 12:47] LABS: ALBUMIN 2.5 g/dL (3.4-5.0); ALBUMIN/GLOBULIN RATIO 0.6 (1.0-1.7); TOTAL BILIRUBIN 0.3 mg/dL (0.2-1.0); TOTAL PROTEIN 6.9 g/dL (6.4-8.2)
[2017-05-22 13:22] LABS: BASO # 0.2 x10^3/uL (0.0-0.2); BASO % 1 % (0-3); EOS % 2 % (0-3); HEMATOCRIT 36.1 % (36.0-47.0); HEMOGLOBIN 12.2 g/dL (12.0-15.5); LYMPH # 1.9 x10^3/uL (1.0-4.8); LYMPH % 14 % (24-48); MEAN CORPUSCULAR HEMOGLOBIN 32 pg (25-35); MEAN CORPUSCULAR HGB CONC 34 g/dL (31-37); MEAN CORPUSCULAR VOLUME 94 fL (79-100); MONO % 6 % (0-9); NEUT % 77 % (31-73); PLATELET COUNT 216 x10^3/uL (140-400); RED BLOOD COUNT 3.83 x10^6/uL (3.50-5.40); RED CELL DISTRIBUTION WIDTH 12.5 % (11.5-14.5); WHITE BLOOD COUNT 13.2 x10^3/uL (4.0-11.0)
== END 2017-05-22 14:40 | disposition home or self-care (01) ==
LOC: 3 SO LND 11:27
PROVIDERS: ADMIT Obstetrics & Gynecology; ATTEND Obstetrics & Gynecology
DX: O10.913 Unspecified pre-existing hypertension complicating pregnancy, third trimester (principal); Z3A.37 37 weeks gestation of pregnancy
CPT/HCPCS: 36415; 80053; 81001; 85025; 87086; G0378; G0379

== ENCOUNTER → 2017-05-23 | Outpatient (CLI) | payer OTHER ==
[~2017-05-23] MED LIST changes: +ACET325T9 PO; +DOCU-109 PO; +IBUP-1060 PO; +NIFE30TA2 PO; +OXYC-323 PO; +PREN1TAB80 PO
[2017-05-23 14:24] LABS: ALBUMIN 2.6 g/dL (3.4-5.0); ALBUMIN/GLOBULIN RATIO 0.6 (1.0-1.7); CALCIUM 8.4 mg/dL (8.5-10.1); CREATININE 0.6 mg/dL (0.6-1.0); GFR 122.8; POTASSIUM 4.2 mmol/L (3.5-5.1); TOTAL BILIRUBIN 0.2 mg/dL (0.2-1.0); TOTAL PROTEIN 7.1 g/dL (6.4-8.2)
[2017-05-24 03:19] LABS: TOTAL SERUM CREATININE 0.54 mg/dL (0.57-1.00); TOTAL URINE CREATININE 96.3 mg/dL (Not Estab.)
== END | disposition home or self-care (01) ==
LOC: LAB 13:44
PROVIDERS: ATTEND Obstetrics & Gynecology
DX: O09.93 Supervision of high risk pregnancy, unspecified, third trimester (principal); Z3A.36 36 weeks gestation of pregnancy
CPT/HCPCS: 36415; 80053; 82575; 84156

== ENCOUNTER 2017-05-29 11:58 | Observation (INO) | payer OTHER ==
[~2017-05-29] VITALS: Ht 165.1 cm; Wt 91.2 kg
[~2017-05-29 11:58] MED LIST changes: -ACET325T9 PO; -DOCU-109 PO; -IBUP-1060 PO; -NIFE30TA2 PO; -OXYC-323 PO; -PREN1TAB80 PO
[2017-05-29] MEDS ORDERED: PREN1TAB80 PO (12:37)
[2017-05-29] MEDS ORDERED: ACET325T9 PO (12:38)
[2017-05-29 12:41] VITALS: BP 108/62
[2017-05-29 13:10] LABS: BASO # 0.1 x10^3/uL (0.0-0.2); BASO % 1 % (0-3); EOS % 3 % (0-3); HEMATOCRIT 33.2 % (36.0-47.0); HEMOGLOBIN 11.7 g/dL (12.0-15.5); LYMPH # 1.5 x10^3/uL (1.0-4.8); LYMPH % 14 % (24-48); MEAN CORPUSCULAR HEMOGLOBIN 33 pg (25-35); MEAN CORPUSCULAR HGB CONC 35 g/dL (31-37); MEAN CORPUSCULAR VOLUME 92 fL (79-100); MONO % 6 % (0-9); NEUT % 76 % (31-73); PLATELET COUNT 171 x10^3/uL (140-400); RED BLOOD COUNT 3.59 x10^6/uL (3.50-5.40); RED CELL DISTRIBUTION WIDTH 12.7 % (11.5-14.5); WHITE BLOOD COUNT 10.6 x10^3/uL (4.0-11.0)
[2017-05-29 13:14] LABS: ALBUMIN 2.5 g/dL (3.4-5.0); ALBUMIN/GLOBULIN RATIO 0.6 (1.0-1.7); CALCIUM 8.6 mg/dL (8.5-10.1); CREATININE 0.6 mg/dL (0.6-1.0); GFR 122.8; POTASSIUM 4.1 mmol/L (3.5-5.1); TOTAL BILIRUBIN 0.3 mg/dL (0.2-1.0); TOTAL PROTEIN 6.9 g/dL (6.4-8.2)
== END 2017-05-29 15:05 | disposition home or self-care (01) ==
LOC: 3 SO LND 11:58
PROVIDERS: ADMIT Obstetrics & Gynecology; ATTEND Obstetrics & Gynecology
DX: Z34.93 Encounter for supervision of normal pregnancy, unspecified, third trimester (principal); Z3A.38 38 weeks gestation of pregnancy
CPT/HCPCS: 36415; 80053; 85025; 86850; 86900; 86901; G0378; G0379

== ENCOUNTER 2017-06-01 06:28 | Inpatient (IN) | payer OTHER ==
[2017-06-01] VITALS (10 sets, daily range): BP systolic 130–149; BP diastolic 76–99
[~2017-06-01] VITALS: Ht 165.1 cm; Wt 96.2 kg
[~2017-06-01 06:28] MED LIST changes: +ACET325T9 PO; +PREN1TAB80 PO
[2017-06-01] MEDS ORDERED: ONDANSETRON PF 4 MG/2 ML VIAL. IV PRN ×2 (06:30→08:45)
[2017-06-01] MEDS ORDERED: TERBUTALINE 1 MG/ML VIAL. ONE (06:56)
[2017-06-01 07:02] LABS: BILIRUBIN,URINE MODERATE (NEG); GLUCOSE,URINE NEGATIVE (NEG); NITRITE,URINE POSITIVE (NEG); PROTEIN,URINE >=300 mg/dL (NEG-TRACE)
[2017-06-01 07:12] LABS: RBC,URINE TNTC /HPF (0-2)
[2017-06-01 07:13] LABS: SQUAMOUS EPITHELIAL CELL,UR MOD /LPF
[2017-06-01 07:16] LABS: BACTERIA,URINE MODERATE /HPF (0-FEW); WBC,URINE FOBS /HPF (0-4)
[2017-06-01] MEDS: IV RINGERS,LACTATED 1000ML 1,000 ML IV SCH ×2 (07:23→15:37)
[2017-06-01] MEDS ORDERED: IV RINGERS,LACTATED 1000ML 1,000 ML IV SCH ×2 (07:30)
[2017-06-01] MEDS ORDERED: CLINDAMYCIN 600MG PREMIX 50 ML IV ONE (07:30)
[2017-06-01] MEDS ORDERED: CITRIC ACID/SODIUM CITRATE 30 ML SOLUTION. PO ONE (07:30)
[2017-06-01] MEDS ORDERED: SUCCINYLCHOLINE 200 MG/10 ML VIAL. ONE (07:37)
[2017-06-01] MEDS ORDERED: DEXAMETHASONE SOD PHOS 20 MG/5 ML VIAL. ONE (07:38)
[2017-06-01] MEDS ORDERED: METOCLOPRAMIDE HCL 10 MG/2 ML VIAL. ONE (07:38)
[2017-06-01] MEDS ORDERED: PROPOFOL 20 ML IV ONE (07:38)
[2017-06-01] MEDS ORDERED: fentaNYL PF VIAL 100 MCG/2 ML VIAL ONE ×2 (07:40→08:30)
[2017-06-01] MEDS ORDERED: OXYTOCIN 10 UNIT/ML VIAL. ONE ×3 (07:46→08:05)
[2017-06-01] MEDS ORDERED: ONDANSETRON PF 4 MG/2 ML VIAL. ONE (07:52)
[2017-06-01] MEDS ORDERED: FAMOTIDINE 20 MG/2 ML VIAL ONE (07:52)
[2017-06-01] MEDS ORDERED: METHYLERGONOVINE MALEATE 0.2 MG/ML VIAL. IM ONE (07:53)
[2017-06-01 07:55] LABS: HEMATOCRIT 34.8 % (36.0-47.0); HEMOGLOBIN 11.8 g/dL (12.0-15.5); RED BLOOD COUNT 3.65 x10^6/uL (3.50-5.40); RED CELL DISTRIBUTION WIDTH 12.8 % (11.5-14.5)
[2017-06-01] MEDS ORDERED: miSOPROStol 200MCG TAB 200 MCG TABLET PR ONE (08:00)
[2017-06-01] MEDS ORDERED: SEVOFLURANE 31 TO 60 MINUTES. IH ONE (08:11)
--- NOTE | 2017-06-01 08:26 | PDOC1 ---
OB - History Hx of Present Care: Good Care Ultrasounds: Normal mid trimester US Obstetrical Complications: Pre-eclampsia Medical Complications: None Past Family/Social History * Past Medical, Surgical, Family and Obstetric Histories reviewed from chart. Rubella: Immune RPR/VDRL: Negative GBS Status: Negative HBsAG: Negative OB - Chief Complaint & HPI Date of Admission: Date of Admission: Jun 01, 2017 at 06:28 Chief Complaint/History : 2 Para: 1 EGA: 37 Reason for admission: rupture of membranes Indication for : other (repeat c/s and suspect placenta abruption) Admission Nurse Assessment Rev: Yes Problems: OB - Admission Exam Physical Exam Vitals: VS - Last 72 Hours, by Label Date Time Temp Pulse Resp B/P (MAP) Pulse Ox O2 Delivery O2 Flow Rate FiO2 06/01/17 07:19 98.6 76 20 149/96 (113) Room Air 98.6 HEENT: Normal Heart: Regular Rate Lungs: Clear Abdomen: Gravid Extremities: Edema Reflexes: Normal Amniotic Fluid: Clear Accelerations: Accelerations Present Decelerations: Late decelerations Contractions on Admission: 6-10 Minutes Apart Intensity: Moderate Text A: 37 wks IUP Preeclampsia: mild Previous c/s x1 Suspect placental abruption P: Admit for stat c/s. ANNIE DAUGHERTY Jr, MD Jun 01, 2017 08:26
--- NOTE | 2017-06-01 08:33 | PDOC4 ---
OB Operative Note PRE OP DIAGNOSIS: Previoujs C- section (mild preeclampsia and category 3 ) POST OP DIAGNOSIS: Other (Same + placental abruption) OPERATION PERFORMED: R [facility] Surgeon Dr. Pitt Anesthesia: Gen Blood Loss 500 ml Specimen placenta and OB Findings: Position (Vertex), Sex (Female), Weight (3Lb 15 oz) Complications placenta abruption Additional Remarks pt. ANNIE Falk Jr, MD Jun 01, 2017 08:33
[2017-06-01] MEDS ORDERED: MAG HYDROX/ALUMINUM HYD/SIMETH 30 ML ORAL.SUSP PO PRN (08:45)
[2017-06-01] MEDS ORDERED: 0.9 % SODIUM CHLORIDE 10 ML DISP.SYRIN. IV PRN (08:45)
[2017-06-01] MEDS ORDERED: OXYTOCIN 30 UNIT/500 ML PREMIX 500 ML IV PRN (08:45)
[2017-06-01] MEDS ORDERED: KETOROLAC TROMETHAMINE 30 MG/ML INJ. IV PRN (08:45)
[2017-06-01] MEDS ORDERED: diphenhydrAMINE ORAL ELIXIR 12.5 MG/5 ML ML PO PRN (08:45)
[2017-06-01] MEDS: KETOROLAC TROMETHAMINE 30 MG/ML INJ. IV PRN ×2 (09:10→15:31)
--- NOTE | 2017-06-01 09:45 | OP ---
DATE OF SURGERY: PREOPERATIVE DIAGNOSES: 1. A 37 weeks intrauterine . 2. Spontaneous rupture of membranes. 3. Previous x 1. 4. Mild preclampsia. 5. Suspect placental abruption. POSTOPERATIVE DIAGNOSES: 1. A 37 weeks intrauterine . 2. Spontaneous rupture of membranes. 3. Previous x 1. 4. Mild preclampsia. 5. Placental abruption. SURGEON: Annie Pitt MD PROCEDURE: Repeat low transverse section. ANESTHESIA: GETA. ESTIMATED BLOOD LOSS: 500 mL. COMPLICATIONS: Placental abruption. FINDINGS: Viable female infant, Apgars still pending, weight 3 pounds 15 ounces, 3-vessel cord placenta delivered manually. There was about 30-40% abruption of placental surface. SUMMARY: A 26-year-old 2, para 1 at 37 weeks, presented with abdominal contractions and rupture of membranes. The patient had category III strip and was counseled for emergency . The patient was counseled on risks, benefits and expectations and voiced clear understanding. DESCRIPTION OF PROCEDURE: The patient was taken to surgery suite and placed in dorsal supine position. She was prepped with ChloraPrep and draped in sterile fashion. After adequate anesthesia, a Pfannenstiel skin incision was made with the scalpel down to and through the fascia. Fascia was extended laterally using curved Cadet scissors. The superior edge of the fascia grasped with Laurence clamps, dissected free of the abdominal rectus muscles using blunt dissection along with curved Cadet scissors. Same process took place inferiorly. The peritoneum was grasped with 2 hemostats and entered sharply with Metzenbaum scissors. This incision was extended superiorly as well as inferiorly. Augie ring retractor was placed. Low transverse hysterotomy incision was made with scalpel down to the . The hysterotomy incision was extended laterally and superiorly digitally. With the aid of fundal pressure, the infant's head was delivered in a smooth atraumatic manner. With additional fundal pressure, the posterior shoulder was delivered followed by the anterior shoulder and rest of female was delivered. was suctioned with a bulb syringe orally and nasally, handed to awaiting nursing staff. Umbilical cord was clamped twice and cut. Infant was handed to waiting nursing staff. Umbilical cord blood and arterial pH were then obtained. Three-vessel cord placenta was delivered with manual extraction. There appeared to be 30-40% abruption. Uterus exteriorized, cleared of clot and debris. The hysterotomy incision was reapproximated using 1-0 Vicryl suture in running locked fashion, imbricated layer of 1-0 Vicryl suture in a running fashion was provided for better hemostasis. Uterus palpated firm. Fallopian tubes and ovaries appeared normal bilaterally. Posterior cul-de-sac was cleared of clot and debris with a moist lap. The uterus was returned to the abdomen. Pericolic gutters were cleared of clot and debris with a moist lap. The Augie ring retractor was removed. Interceed was placed over the hysterotomy incision in an inverted T fashion. Peritoneum was reapproximated using 1-0 Vicryl suture in running fashion. Fascia was reapproximated using 0 Vicryl suture in running fashion. Skin was reapproximated using 4-0 Vicryl suture in a subcuticular manner. The patient tolerated procedure well and was taken to recovery room in stable condition. Sponge and needle counts were correct x 3. ANNIE PITT MD DR: PRINCE/maynor JOB#: [id number] / [id number]
[2017-06-01] MEDS ORDERED: CLINDAMYCIN 900MG PREMIX 50 ML IV ONE (12:00)
[2017-06-01] MEDS: oxyCODONE/APAP 5/325 1 TAB TABLET PO PRN (22:33)
[2017-06-02] MEDS: IBUPROFEN 800 MG TABLET. PO PRN ×2 (04:44→17:54)
[2017-06-02 05:36] LABS: BASO # 0.2 x10^3/uL (0.0-0.2); BASO % 1 % (0-3); EOS % 1 % (0-3); HEMOGLOBIN 8.4 g/dL (12.0-15.5); LYMPH # 2.7 x10^3/uL (1.0-4.8); LYMPH % 16 % (24-48); MEAN CORPUSCULAR HEMOGLOBIN 33 pg (25-35); MEAN CORPUSCULAR HGB CONC 35 g/dL (31-37); MEAN CORPUSCULAR VOLUME 93 fL (79-100); MONO % 6 % (0-9); NEUT % 77 % (31-73); PLATELET COUNT 156 x10^3/uL (140-400); RED BLOOD COUNT 2.57 x10^6/uL (3.50-5.40); RED CELL DISTRIBUTION WIDTH 12.8 % (11.5-14.5); WHITE BLOOD COUNT 17.3 x10^3/uL (4.0-11.0)
[2017-06-02 06:00] VITALS: BP 117/77
[2017-06-02 07:19] LABS: % EOS 2 % (0-5)
[2017-06-02 07:20] LABS: PLT ESTIMATE ADEQUATE (ADEQUATE)
[2017-06-02] MEDS: DOCUSATE SODIUM 100 MG CAPSULE. PO PRN ×2 (10:58→17:54)
[2017-06-02] MEDS: SIMETHICONE 80 MG TAB.CHEW PO PRN ×2 (10:59→17:55)
[2017-06-02] MEDS: FERROUS SULFATE 325 MG TABLET. PO SCH ×2 (10:59→17:54)
[2017-06-02] MEDS: oxyCODONE/APAP 5/325 1 TAB TABLET PO PRN ×2 (11:01→21:50)
[2017-06-02 11:51] VITALS: BP 165/95
--- NOTE | 2017-06-02 12:32 | PDOC ---
OB Progress Note Date of Service 06/02/17 Time of Evaluation 1230 Notes Pt. feeling well. Pain controlled. She is attempting breast feeding. Pt. tolerating regular diet, ambulating and voiding without difficulty. Lab Laboratory Tests Test 06/01/17 06:55 06/01/17 07:40 06/02/17 05:00 Urine Collection Type Void Urine Color Red Urine Clarity Turbid Urine pH 6.0 Urine Specific [place] 1.025 Urine Protein >=300 mg/dL (NEG-TRACE) Urine Glucose (UA) Negative mg/dL (NEG) Urine Ketones (Stick) 15 mg/dL (NEG) Urine Blood Large (NEG) Urine Nitrite Positive (NEG) Urine Bilirubin Moderate (NEG) Urine Urobilinogen Dipstick 1.0 mg/dL (0.2 mg/dL) Urine Leukocyte Esterase Moderate (NEG) Urine RBC Tntc /HPF (0-2) Urine WBC Fobs /HPF (0-4) Urine Squamous Epithelial Cells Mod /LPF Urine Bacteria Moderate /HPF (0-FEW) Urine Mucus Marked /LPF White Blood Count 13.0 x10^3/uL (4.0-11.0) 17.3 x10^3/uL (4.0-11.0) Red Blood Count 3.65 x10^6/uL (3.50-5.40) 2.57 x10^6/uL (3.50-5.40) Hemoglobin 11.8 g/dL (12.0-15.5) 8.4 g/dL (12.0-15.5) Hematocrit 34.8 % (36.0-47.0) 24.0 % (36.0-47.0) Mean Corpuscular Volume 95 fL (79-100) 93 fL (79-100) Mean Corpuscular Hemoglobin 32 pg (25-35) 33 pg (25-35) Mean Corpuscular Hemoglobin Concent 34 g/dL (31-37) 35 g/dL (31-37) Red Cell Distribution Width 12.8 % (11.5-14.5) 12.8 % (11.5-14.5) Platelet Count 141 x10^3/uL (140-400) 156 x10^3/uL (140-400) Neutrophils (%) (Auto) 77 % (31-73) Lymphocytes (%) (Auto) 16 % (24-48) Monocytes (%) (Auto) 6 % (0-9) Eosinophils (%) (Auto) 1 % (0-3) Basophils (%) (Auto) 1 % (0-3) Neutrophils # (Auto) 13.3 x10^3uL (1.8-7.7) Lymphocytes # (Auto) 2.7 x10^3/uL (1.0-4.8) Monocytes # (Auto) 1.0 x10^3/uL (0.0-1.1) Eosinophils # (Auto) 0.1 x10^3/uL (0.0-0.7) Basophils # (Auto) 0.2 x10^3/uL (0.0-0.2) Segmented Neutrophils % 81 % (35-66) Band Neutrophils % 4 % (0-9) Lymphocytes % 9 % (24-48) Monocytes % 4 % (0-10) Eosinophils % 2 % (0-5) Platelet Estimate Adequate (ADEQUATE) Laboratory Tests Test 06/02/17 05:00 White Blood Count 17.3 x10^3/uL (4.0-11.0) Red Blood Count 2.57 x10^6/uL (3.50-5.40) Hemoglobin 8.4 g/dL (12.0-15.5) Hematocrit 24.0 % (36.0-47.0) Mean Corpuscular Volume 93 fL (79-100) Mean Corpuscular Hemoglobin 33 pg (25-35) Mean Corpuscular Hemoglobin Concent 35 g/dL (31-37) Red Cell Distribution Width 12.8 % (11.5-14.5) Platelet Count 156 x10^3/uL (140-400) Neutrophils (%) (Auto) 77 % (31-73) Lymphocytes (%) (Auto) 16 % (24-48) Monocytes (%) (Auto) 6 % (0-9) Eosinophils (%) (Auto) 1 % (0-3) Basophils (%) (Auto) 1 % (0-3) Neutrophils # (Auto) 13.3 x10^3uL (1.8-7.7) Lymphocytes # (Auto) 2.7 x10^3/uL (1.0-4.8) Monocytes # (Auto) 1.0 x10^3/uL (0.0-1.1) Eosinophils # (Auto) 0.1 x10^3/uL (0.0-0.7) Basophils # (Auto) 0.2 x10^3/uL (0.0-0.2) Segmented Neutrophils % 81 % (35-66) Band Neutrophils % 4 % (0-9) Lymphocytes % 9 % (24-48) Monocytes % 4 % (0-10) Eosinophils % 2 % (0-5) Platelet Estimate Adequate (ADEQUATE) Medications Current Medications Ringer's Solution 1,000 ml @ 125 mls/hr Q8H IV Last administered on 06/01/17 15:37; Start 06/01/17 at 06:30 Ondansetron HCl (Zofran) 4 mg PRN Q6HRS PRN IV NAUSEA; Start 06/01/17 at 06:30 Terbutaline Sulfate (Brethine) 1 mg STK-MED ONCE .ROUTE ; Start 06/01/17 at 06: 56; Stop 06/01/17 at 06:57; Status DC Ringer's Solution 1,000 ml @ 1,000 mls/hr Q1H IV ; Start 06/01/17 at 07:30; Stop 06/01/17 at 08:29; Status DC Ringer's Solution 1,000 ml @ 125 mls/hr Q8H IV ; Start 06/01/17 at 07:30 Clindamycin Phosphate 50 ml @ 100 mls/hr 1X ONCE IV Last administered on 06/01 08:58; Start 06/01/17 at 07:30; Stop 06/01/17 at 07:59; Status DC Citric Acid/ Sodium Citrate (Bicitra) 30 ml 1X ONCE PO ; Start 06/01/17 at 07: 30; Stop 06/01/17 at 07:31; Status DC Ketorolac Tromethamine (Toradol) 30 mg PRN Q6HRS PRN IV PAIN Last administered on 06/01/17 15:31; Start 06/01/17 at 07:45; Stop 06/06/17 at 07:44 Succinylcholine Chloride (Anectine) 200 mg STK-MED ONCE .ROUTE ; Start 06/01/17 at 07:37; Stop 06/01/17 at 07:38; Status DC Propofol 20 ml @ As Directed STK-MED ONCE IV ; Start 06/01/17 at 07:38; Stop at 07:39; Status DC Dexamethasone Sodium Phosphate (Decadron) 20 mg STK-MED ONCE .ROUTE ; Start at 07:38; Stop 06/01/17 at 07:39; Status DC Metoclopramide HCl (Reglan) 10 mg STK-MED ONCE .ROUTE ; Start 06/01/17 at 07:38 ; Stop 06/01/17 at 07:39; Status DC Fentanyl Citrate (Fentanyl 2ml Vial) 100 mcg STK-MED ONCE .ROUTE ; Start at 07:40; Stop 06/01/17 at 07:41; Status DC Oxytocin (Pitocin) 10 unit STK-MED ONCE .ROUTE ; Start 06/01/17 at 07:46; Stop 06/01/17 at 07:47; Status DC Ondansetron HCl (Zofran) 4 mg STK-MED ONCE .ROUTE ; Start 06/01/17 at 07:52; Stop 06/01/17 at 07:53; Status DC Famotidine (Pepcid) 20 mg STK-MED ONCE .ROUTE ; Start 06/01/17 at 07:52; Stop at 07:53; Status DC Methylergonovine Maleate (Methergine) 0.2 mg STK-MED ONCE IM ; Start 06/01/17 at 07:53; Stop 06/01/17 at 07:54; Status DC Oxytocin (Pitocin) 10 unit STK-MED ONCE .ROUTE ; Start 06/01/17 at 07:55; Stop 06/01/17 at 07:56; Status DC Misoprostol (Cytotec 200mcg Tab) 800 mcg 1X ONCE NE ; Start 06/01/17 at 08:00; Stop 06/01/17 at 08:01; Status DC Oxytocin (Pitocin) 10 unit STK-MED ONCE .ROUTE ; Start 06/01/17 at 08:05; Stop 06/01/17 at 08:06; Status DC Sevoflurane (Ultane) 30 ml STK-MED ONCE IH ; Start 06/01/17 at 08:11; Stop 06/01 at 08:12; Status DC Fentanyl Citrate (Fentanyl 2ml Vial) 100 mcg STK-MED ONCE .ROUTE ; Start at 08:30; Stop 06/01/17 at 08:31; Status DC Sodium Chloride (Normal Saline Flush) 3 ml QSHIFT PRN IV AFTER MEDS AND BLOOD DRAWS; Start 06/01/17 at 08:45 Oxytocin/Sodium Chloride 500 ml @ 125 mls/hr CONT PRN IV EXCESSIVE POST- BLEEDING; Start 06/01/17 at 08:45; Stop 06/01/17 at 16:44; Status DC Ibuprofen (Motrin) 800 mg PRN Q8HRS PRN PO INFLAMMATION Last administered on 04:44; Start 06/01/17 at 08:45 Ondansetron HCl (Zofran) 4 mg PRN Q6HRS PRN IV NAUSEA/VOMITING; Start 06/01/17 at 08:45 Docusate Sodium (Colace) 100 mg PRN BID PRN PO CONSTIPATION Last administered on 06/02/17 10:58; Start 06/01/17 at 08:45 Al Hydroxide/Mg Hydroxide (Mylanta Plus Xs) 30 ml PRN Q4HRS PRN PO HEARTBURN / GAS; Start 06/01/17 at 08:45 Simethicone (Gas-X) 80 mg PRN AFTMEALHC PRN PO GAS / BLOATING Last administered on 06/02/17 10:59; Start 06/01/17 at 08:45 Diphenhydramine HCl (Benadryl Oral Elixir) 12.5 mg PRN Q6HRS PRN PO ITCHING Last administered on 06/02/17 04:44; Start 06/01/17 at 08:45 Ferrous Sulfate (Feosol) 325 mg BIDWMEALS PO Last administered on 06/02/17 10: 59; Start 06/01/17 at 17:00 Zolpidem Tartrate (Ambien) 5 mg PRN QHS PRN PO INSOMNIA, MAY REPEAT X1; Start 06/01/17 at 08:45 Oxycodone/ Acetaminophen (Percocet 5/325) 2 tab PRN Q4HRS PRN PO MODERATE PAIN , SEVERE PAIN Last administered on 06/02/17 11:01; Start 06/01/17 at 08:45 Ketorolac Tromethamine (Toradol) 30 mg PRN Q6HRS PRN IV PAIN; Start 06/01/17 at 08:45; Stop 06/06/17 at 08:44 Clindamycin Phosphate 50 ml @ 100 mls/hr 1X ONCE IV Last administered on 06/01 15:32; Start 06/01/17 at 12:00; Stop 06/01/17 at 12:29; Status DC Hydromorphone HCl 30 ml @ 0 mls/hr CONT PRN PRN IV PROTOCOL Last administered on 06/01/17 09:07; Start 06/01/17 at 08:45 Active Scripts Active Reported Tylenol (Acetaminophen) 325 Mg Tablet 1-2 Tab PO QID Formula ( Vit W-Ca,Fe,FA(<1 mg)) 1 Each Tablet 1 Each PO Exam Abd: soft, non tender, fundus firm Bandage removed. Incision site: clean, dry and intact Assessment POD#1 s/p repeat c/s Plan of Care: Continue current Tx, Mgmt ANNIE DAUGHERTY Jr, MD Jun 02, 2017 12:32
[2017-06-02 12:37] VITALS: BP 142/88
[2017-06-02 17:56] VITALS: BP 155/82
[2017-06-02 23:04] VITALS: BP 147/92
[2017-06-02] MEDS: ZOLPIDEM 5 MG TABLET. PO PRN (23:53)
[2017-06-03] MEDS: IBUPROFEN 800 MG TABLET. PO PRN ×2 (06:00→15:49)
[2017-06-03 06:09] VITALS: BP 132/75
[2017-06-03 06:09] LABS: RPR REFLEX Non Reactive (Non Reactive)
[2017-06-03] MEDS: FERROUS SULFATE 325 MG TABLET. PO SCH ×3 (08:00→17:00)
--- NOTE | 2017-06-03 11:48 | PDOC ---
Provider Note Provider Note Doing well VSS Incision CDI FU in AM SANDY GALAVIZ MD Jun 03, 2017 11:48
[2017-06-03 13:00] VITALS: BP 143/93
[2017-06-03] MEDS: DOCUSATE SODIUM 100 MG CAPSULE. PO PRN (15:49)
[2017-06-03 18:00] VITALS: BP 157/94
[2017-06-03 20:45] VITALS: BP 157/95
[2017-06-03] MEDS: oxyCODONE/APAP 5/325 1 TAB TABLET PO PRN (21:05)
[2017-06-03] MEDS: ZOLPIDEM 5 MG TABLET. PO PRN (22:36)
[2017-06-04 05:55] VITALS: BP 158/97
--- NOTE | 2017-06-04 08:06 | PDOC ---
OB Progress Note Date of Service 06/04/17 Time of Evaluation 0805 Notes Pt. feeling well. No complaints. Medications Current Medications Ringer's Solution 1,000 ml @ 125 mls/hr Q8H IV Last administered on 06/01/17 15:37; Start 06/01/17 at 06:30; Stop 06/02/17 at 14:42; Status DC Ondansetron HCl (Zofran) 4 mg PRN Q6HRS PRN IV NAUSEA; Start 06/01/17 at 06:30 ; Stop 06/02/17 at 14:42; Status DC Terbutaline Sulfate (Brethine) 1 mg STK-MED ONCE .ROUTE ; Start 06/01/17 at 06: 56; Stop 06/01/17 at 06:57; Status DC Ringer's Solution 1,000 ml @ 1,000 mls/hr Q1H IV ; Start 06/01/17 at 07:30; Stop 06/01/17 at 08:29; Status DC Ringer's Solution 1,000 ml @ 125 mls/hr Q8H IV ; Start 06/01/17 at 07:30; Stop 06/02/17 at 19:38; Status DC Clindamycin Phosphate 50 ml @ 100 mls/hr 1X ONCE IV Last administered on 06/01 08:58; Start 06/01/17 at 07:30; Stop 06/01/17 at 07:59; Status DC Citric Acid/ Sodium Citrate (Bicitra) 30 ml 1X ONCE PO ; Start 06/01/17 at 07: 30; Stop 06/01/17 at 07:31; Status DC Ketorolac Tromethamine (Toradol) 30 mg PRN Q6HRS PRN IV PAIN Last administered on 06/01/17 15:31; Start 06/01/17 at 07:45; Stop 06/02/17 at 14:43; Status DC Succinylcholine Chloride (Anectine) 200 mg STK-MED ONCE .ROUTE ; Start 06/01/17 at 07:37; Stop 06/01/17 at 07:38; Status DC Propofol 20 ml @ As Directed STK-MED ONCE IV ; Start 06/01/17 at 07:38; Stop at 07:39; Status DC Dexamethasone Sodium Phosphate (Decadron) 20 mg STK-MED ONCE .ROUTE ; Start at 07:38; Stop 06/01/17 at 07:39; Status DC Metoclopramide HCl (Reglan) 10 mg STK-MED ONCE .ROUTE ; Start 06/01/17 at 07:38 ; Stop 06/01/17 at 07:39; Status DC Fentanyl Citrate (Fentanyl 2ml Vial) 100 mcg STK-MED ONCE .ROUTE ; Start at 07:40; Stop 06/01/17 at 07:41; Status DC Oxytocin (Pitocin) 10 unit STK-MED ONCE .ROUTE ; Start 06/01/17 at 07:46; Stop 06/01/17 at 07:47; Status DC Ondansetron HCl (Zofran) 4 mg STK-MED ONCE .ROUTE ; Start 06/01/17 at 07:52; Stop 06/01/17 at 07:53; Status DC Famotidine (Pepcid) 20 mg STK-MED ONCE .ROUTE ; Start 06/01/17 at 07:52; Stop at 07:53; Status DC Methylergonovine Maleate (Methergine) 0.2 mg STK-MED ONCE IM ; Start 06/01/17 at 07:53; Stop 06/01/17 at 07:54; Status DC Oxytocin (Pitocin) 10 unit STK-MED ONCE .ROUTE ; Start 06/01/17 at 07:55; Stop 06/01/17 at 07:56; Status DC Misoprostol (Cytotec 200mcg Tab) 800 mcg 1X ONCE IA ; Start 06/01/17 at 08:00; Stop 06/01/17 at 08:01; Status DC Oxytocin (Pitocin) 10 unit STK-MED ONCE .ROUTE ; Start 06/01/17 at 08:05; Stop 06/01/17 at 08:06; Status DC Sevoflurane (Ultane) 30 ml STK-MED ONCE IH ; Start 06/01/17 at 08:11; Stop 06/01 at 08:12; Status DC Fentanyl Citrate (Fentanyl 2ml Vial) 100 mcg STK-MED ONCE .ROUTE ; Start at 08:30; Stop 06/01/17 at 08:31; Status DC Sodium Chloride (Normal Saline Flush) 3 ml QSHIFT PRN IV AFTER MEDS AND BLOOD DRAWS; Start 06/01/17 at 08:45; Stop 06/04/17 at 07:43; Status DC Oxytocin/Sodium Chloride 500 ml @ 125 mls/hr CONT PRN IV EXCESSIVE POST- BLEEDING; Start 06/01/17 at 08:45; Stop 06/01/17 at 16:44; Status DC Ibuprofen (Motrin) 800 mg PRN Q8HRS PRN PO INFLAMMATION Last administered on 15:49; Start 06/01/17 at 08:45 Ondansetron HCl (Zofran) 4 mg PRN Q6HRS PRN IV NAUSEA/VOMITING; Start 06/01/17 at 08:45; Stop 06/04/17 at 07:43; Status DC Docusate Sodium (Colace) 100 mg PRN BID PRN PO CONSTIPATION Last administered on 06/03/17 15:49; Start 06/01/17 at 08:45 Al Hydroxide/Mg Hydroxide (Mylanta Plus Xs) 30 ml PRN Q4HRS PRN PO HEARTBURN / GAS; Start 06/01/17 at 08:45 Simethicone (Gas-X) 80 mg PRN AFTMEALHC PRN PO GAS / BLOATING Last administered on 06/02/17 17:55; Start 06/01/17 at 08:45 Diphenhydramine HCl (Benadryl Oral Elixir) 12.5 mg PRN Q6HRS PRN PO ITCHING Last administered on 06/02/17 04:44; Start 06/01/17 at 08:45 Ferrous Sulfate (Feosol) 325 mg BIDWMEALS PO Last administered on 06/03/17 15: 49; Start 06/01/17 at 17:00 Zolpidem Tartrate (Ambien) 5 mg PRN QHS PRN PO INSOMNIA, MAY REPEAT X1 Last administered on 06/03/17 22:36; Start 06/01/17 at 08:45 Oxycodone/ Acetaminophen (Percocet 5/325) 2 tab PRN Q4HRS PRN PO MODERATE PAIN , SEVERE PAIN Last administered on 06/03/17 21:05; Start 06/01/17 at 08:45 Ketorolac Tromethamine (Toradol) 30 mg PRN Q6HRS PRN IV PAIN; Start 06/01/17 at 08:45; Stop 06/04/17 at 07:43; Status DC Clindamycin Phosphate 50 ml @ 100 mls/hr 1X ONCE IV Last administered on 06/01 15:32; Start 06/01/17 at 12:00; Stop 06/01/17 at 12:29; Status DC Hydromorphone HCl 30 ml @ 0 mls/hr CONT PRN PRN IV PROTOCOL Last administered on 06/01/17 09:07; Start 06/01/17 at 08:45; Stop 06/02/17 at 19:37; Status DC Active Scripts Active Reported Tylenol (Acetaminophen) 325 Mg Tablet 1-2 Tab PO QID Formula ( Vit W-Ca,Fe,FA(<1 mg)) 1 Each Tablet 1 Each PO Exam Abd: soft, non tender, fundus firm INcision site: clean, dry and intact Assessment POD#3 s/p repeat c/s Plan of Care: See new orders (D/ c home.) ANNIE DAUGHERTY Jr, MD Jun 04, 2017 08:06
--- NOTE | 2017-06-04 08:07 | DISCH ---
DISCHARGE INSTRUCTIONS Condition on Discharge Condition on Discharge: Stable Activity After Discharge Activity Instructions for Disc: Activity as tolerated Lifting Instructions after Dis: No heavy lifting Driving Instructions after Dis: Do not drive today Diet after Discharge Diet after Discharge: Regular Contacting the DRCharles after DC Call your doctor for: Concerns you may have Follow-Up Follow up with: Dr. Pitt in 2 weeks. ANNIE PITT Jr, MD Jun 04, 2017 08:07
[2017-06-04] MEDS ORDERED: IBUP-1060 PO (08:09)
[2017-06-04] MEDS ORDERED: DOCU-109 PO (08:09)
[2017-06-04] MEDS ORDERED: NIFE30TA2 PO (08:09)
[2017-06-04] MEDS ORDERED: OXYC-323 PO (08:09)
[2017-06-04] MEDS: FERROUS SULFATE 325 MG TABLET. PO SCH (08:44)
[2017-06-04] MEDS: DOCUSATE SODIUM 100 MG CAPSULE. PO PRN (08:44)
[2017-06-04] MEDS: oxyCODONE/APAP 5/325 1 TAB TABLET PO PRN (08:48)
[2017-06-04] MEDS: IBUPROFEN 800 MG TABLET. PO PRN (08:48)
[2017-06-04 09:15] VITALS: BP 174/98
--- NOTE | 2017-06-05 15:24 | PATHOLOGY ---
PATHOLOGY REPORT * * * * * * * * FINAL DIAGNOSIS: 367 gram placenta of an estimated 38 weeks gestation with attached membranes and umbilical cord and separate detached segment of umbilical cord: - Small placenta. - Placental infarcts, multiple. (JPM:dustin; 06/05/2017) REPORT ELECTRONICALLY SIGNED BY: Prasanna Dumont M.D. DATE/TIME: 06/05/2017 15:20 * * * * * * * * GROSS PATHOLOGY: Received in formalin labeled "Gregorio Mendenhall, placenta and cord," is a wheatley placenta, with attached membranes and umbilical cord. The trimmed placental weight is 367 grams and the disc measures 12.5 x 11.5 x 3.7 cm. The membranes are castle-burns, wrinkled and opaque, and the site of membrane rupture is 2.7 cm from the placental margin. The surface is blue-burns and shows a normal arborizing vasculature. The three vessel umbilical cord is received in two segments measuring 18.7 and 20.6 cm in length. The umbilical cord inserts eccentrically, 2.2 cm from the closest placental edge. The umbilical cord is markedly twisted. The maternal surface is intact. There are no areas of compression or blood clot adhesion. Sectioning reveals spongy, purple-red parenchyma. Multiple, bright yellow, indurated areas are noted throughout the cut surface ranging from 0.7-2.5 cm. These areas aggregate to less than 5% of the entire cut surface. Sections are submitted as follows: A1 - Membrane roll A2 - umbilical cord 2 A3 - central placental full-thickness to include possible infarct A4 - peripheral placental full-thickness to include possible infarct (JW; 06/04/2017) INITIAL CPT CODE(S): A; 91182 Professional services performed by [facility] at [address] [address] Technical services performed by [facility] at [address] [place] [address], [address], [place] [address]. SPECIMEN(S) RECEIVED: A.Placenta CLINICAL HISTORY: Term IUP, non reassuring heart tones, repeat , IUGR partial placental abruption, , EDC 06/10/17, mild PIH, bloody fluid, 3lb 15oz female @ 0751 on 06/01/17, EDC 06/10/17, apgars 2-2-8 PATIENT: GREGORIO MENDENHALL /AGE: 1 1990 (Age: 26) PATIENT #: [id number] ALT CASE #: SPECIMEN COLLECTION DATE: 06/01/2017 SPECIMEN RECEIVED DATE: 06/04/2017 [facility] - [id number] [address] - PHONE: [phone] * * * END OF REPORT * * *
== END 2017-06-04 10:00 | disposition home or self-care (01) | DRG 765 ==
LOC: 3 SO LND 06:28 → OBSVTOIN 08:36 → 3 NORTH 11:00
PROVIDERS: ADMIT Obstetrics & Gynecology; ATTEND Obstetrics & Gynecology
PROC: 10D00Z1 Extraction of Products of Conception, Low, Open Approach (ICD-10-PCS; principal; 2017-06-01)
DX: O34.211 Maternal care for low transverse scar from previous cesarean delivery (principal); O45.93 Premature separation of placenta, unspecified, third trimester; O14.04 Mild to moderate pre-eclampsia, complicating childbirth; Z3A.37 37 weeks gestation of pregnancy; Z37.0 Single live birth
CPT/HCPCS: 36415; 81001; 85007; 85025; 85027; 86593; 86850; 86900; 86901; 87086; G0378; G0379; J0330; J1100; J1170; J1885; J2405; J2590; J2704; J2765; J3010; J3490; J7120; S0028

== ENCOUNTER 2017-08-31 12:13 | Emergency (ER) | payer OTHER ==
[~2017-08-31 12:13] MED LIST changes: +DOCU-109 PO; +IBUP-1060 PO; +NIFE30TA2 PO; +OXYC-323 PO
[2017-08-31] MEDS: IV NORMAL SALINE 1000ML BAG 1,000 ML IV SCH ×2 (13:24→14:15)
[2017-08-31 13:27] LABS: BILIRUBIN,URINE NEGATIVE (NEG); GLUCOSE,URINE NEGATIVE (NEG); NITRITE,URINE NEGATIVE (NEG); PH,URINE 6.5; PROTEIN,URINE NEGATIVE (NEG-TRACE); UROBILINOGEN,URINE 0.2 mg/dL (0.2 mg/dL)
[2017-08-31 13:37] LABS: BACTERIA,URINE 0 /HPF (0-FEW); WBC,URINE 0 /HPF (0-4)
[2017-08-31 13:38] LABS: BASO # 0.1 x10^3/uL (0.0-0.2); BASO % 1 % (0-3); EOS % 4 % (0-3); HEMOGLOBIN 13.2 g/dL (12.0-15.5); LYMPH # 2.4 x10^3/uL (1.0-4.8); LYMPH % 31 % (24-48); MEAN CORPUSCULAR HEMOGLOBIN 30 pg (25-35); MEAN CORPUSCULAR HGB CONC 33 g/dL (31-37); MEAN CORPUSCULAR VOLUME 91 fL (79-100); MONO % 6 % (0-9); NEUT % 58 % (31-73); PLATELET COUNT 293 x10^3/uL (140-400); RED BLOOD COUNT 4.42 x10^6/uL (3.50-5.40); RED CELL DISTRIBUTION WIDTH 13.2 % (11.5-14.5); WHITE BLOOD COUNT 7.8 x10^3/uL (4.0-11.0)
--- NOTE | 2017-08-31 14:10 | PHYS DOC ---
Past Medical History Past Medical History: Anemia, Asthma, Other Additional Past Medical Histor: SEASONAL ALLERGIES; miscarriage, preeclampsia Past Surgical History: , Tubal ligation Alcohol Use: Rarely Drug Use: None Adult General Chief Complaint Chief Complaint: NEAR SYNCOPE HPI HPI Patient is a 26 year old female who presents with complaint of lightheadedness and near syncope. Patient states that she awoke early this morning with mild symptoms when she went to feed her child. Patient states that she is approximately 3 months . Patient states that she started having bleeding earlier this week, however she states that her bleeding became much heavier starting last night. Patient states that she feels dehydrated because of her heavy menstrual bleeding and is concerned that this is causing her symptoms. Patient denies any abdominal pain or chest pain at this time and has not had any fevers. The patient states that her lightheadedness worsens with position changes. The patient came to the emergency department to be evaluated due to her concern for the symptoms. Review of Systems Review of Systems Constitutional: Denies fever or chills [] Eyes: Denies change in visual acuity, redness, or eye pain [] HENT: Denies nasal congestion or sore throat [] Respiratory: Denies cough or shortness of breath [] Cardiovascular: Near syncope, denies chest pain[] GI: Denies abdominal pain, nausea, vomiting, bloody stools or diarrhea [] : Denies dysuria or hematuria [] Musculoskeletal: Denies back pain or joint pain [] Integument: Denies rash or skin lesions [] Neurologic: Denies headache, focal weakness or sensory changes [] All other systems were reviewed and found to be within normal limits, except as documented in this note. Current Medications Current Medications Current Medications Medications (Trade) Dose Ordered Sig/Segun Start Time Stop Time Status Last Admin Dose Admin Sodium Chloride 1,000 ml @ 1,000 mls/hr Q1H 08/31/17 13:24 08/31/17 15:23 08/31/17 14:15 1,000 MLS/HR Allergies Allergies Allergies Coded Allergies Type Severity Reaction Last Updated Verified Penicillins Allergy Intermediate 10/11/16 Yes cefaclor Allergy Intermediate 10/11/16 Yes Physical Exam Physical Exam Constitutional: Well developed, well nourished, no acute distress, non-toxic appearance. [] HENT: Normocephalic, atraumatic, bilateral external ears normal, oropharynx moist, no oral exudates, nose normal. [] Eyes: PERRLA, EOMI, conjunctiva normal, no discharge. [] Neck: Normal range of motion, no tenderness, supple, no stridor. [] Cardiovascular:Heart rate regular rhythm, no murmur [] Lungs & Thorax: Bilateral breath sounds clear to auscultation [] Abdomen: Bowel sounds normal, soft, no tenderness, no masses, no pulsatile masses. [] Skin: Warm, dry, no erythema, no rash. [] Back: No tenderness, no CVA tenderness. [] Extremities: No tenderness, no cyanosis, no clubbing, ROM intact, no edema. [] Neurologic: Alert and oriented X 3, normal motor function, normal sensory function, no focal deficits noted. [] Current Patient Data Vital Signs Vital Signs Date Time Temp Pulse Resp B/P (MAP) Pulse Ox O2 Delivery O2 Flow Rate FiO2 08/31/17 12:25 98.3 71 16 108/61 (77) 100 Room Air 98.3 Lab Values Laboratory Tests Test 08/31/17 12:17 08/31/17 12:26 08/31/17 13:17 Urine Collection Type Unknown Urine Color Yellow Urine Clarity Clear Urine pH 6.5 Urine Specific Garvin 1.010 Urine Protein Negative mg/dL (NEG-TRACE) Urine Glucose (UA) Negative mg/dL (NEG) Urine Ketones (Stick) Negative mg/dL (NEG) Urine Blood Large (NEG) Urine Nitrite Negative (NEG) Urine Bilirubin Negative (NEG) Urine Urobilinogen Dipstick 0.2 mg/dL (0.2 mg/dL) Urine Leukocyte Esterase Negative (NEG) Urine RBC 11-20 /HPF (0-2) Urine WBC 0 /HPF (0-4) Urine Bacteria 0 /HPF (0-FEW) POC Urine HCG, Qualitative Hcg negative (Negative) White Blood Count 7.8 x10^3/uL (4.0-11.0) Red Blood Count 4.42 x10^6/uL (3.50-5.40) Hemoglobin 13.2 g/dL (12.0-15.5) Hematocrit 40.0 % (36.0-47.0) Mean Corpuscular Volume 91 fL (79-100) Mean Corpuscular Hemoglobin 30 pg (25-35) Mean Corpuscular Hemoglobin Concent 33 g/dL (31-37) Red Cell Distribution Width 13.2 % (11.5-14.5) Platelet Count 293 x10^3/uL (140-400) Neutrophils (%) (Auto) 58 % (31-73) Lymphocytes (%) (Auto) 31 % (24-48) Monocytes (%) (Auto) 6 % (0-9) Eosinophils (%) (Auto) 4 % (0-3) H Basophils (%) (Auto) 1 % (0-3) Neutrophils # (Auto) 4.5 x10^3uL (1.8-7.7) Lymphocytes # (Auto) 2.4 x10^3/uL (1.0-4.8) Monocytes # (Auto) 0.5 x10^3/uL (0.0-1.1) Eosinophils # (Auto) 0.3 x10^3/uL (0.0-0.7) Basophils # (Auto) 0.1 x10^3/uL (0.0-0.2) Sodium Level 142 mmol/L (136-145) Potassium Level 3.5 mmol/L (3.5-5.1) Chloride Level 107 mmol/L (98-107) Carbon Dioxide Level 29 mmol/L (21-32) Anion Gap 6 (6-14) Blood Urea Nitrogen 11 mg/dL (7-20) Creatinine 0.7 mg/dL (0.6-1.0) Estimated GFR (Cockcroft-Gault) 102.8 BUN/Creatinine Ratio 16 (6-20) Glucose Level 100 mg/dL (70-99) H Calcium Level 9.1 mg/dL (8.5-10.1) Total Bilirubin 0.3 mg/dL (0.2-1.0) Aspartate Amino Transferase (AST) 14 U/L (15-37) L Alanine Aminotransferase (ALT) 22 U/L (14-59) Alkaline Phosphatase 81 U/L (46-116) Total Protein 7.8 g/dL (6.4-8.2) Albumin 3.7 g/dL (3.4-5.0) Albumin/Globulin Ratio 0.9 (1.0-1.7) L Laboratory Tests 08/31/17 13:17 Laboratory Tests 08/31/17 13:17 EKG EKG Interpreted by me: Heart rate 66, sinus rhythm, normal axis, normal intervals, no acute ST/T-wave abnormalities present[] Radiology/Procedures Radiology/Procedures Not performed[] Course & Med Decision Making Course & Med Decision Making Pertinent Labs and Imaging studies reviewed. (See chart for details) Patient's labwork unremarkable. The patient was given 2 L of IV fluids. Patient' s vital signs remained stable in the emergency department. Patient able to ambulate with a nonfocal during gait. Advised continued oral hydration at home and recommended follow-up in [address] Pitt of [facility]. Advised patient to return emergency department for any worsening symptoms. Patient voiced understanding and in agreement with treatment plan. Dragon Disclaimer Dragon Disclaimer This electronic medical record was generated, in whole or in part, using a voice recognition dictation system. Departure Departure Impression: Primary Impression: Dehydration Additional Impression: Heavy menstrual bleeding Disposition: HOME, SELF-CARE Condition: IMPROVED Referrals: NO PCP (PCP) Patient Instructions: Dehydration, Adult Additional Instructions: Follow-up with Dr. Pitt in 2-3 days for reevaluation. Return to emergency department for any worsening symptoms. Problem Qualifiers Additional Impression: Heavy menstrual bleeding Menorrahagia type: with irregular cycle Qualified Codes: N92.1 - Excessive and frequent menstruation with irregular cycle JARED GEE MD Aug 31, 2017 14:10
[2017-08-31 14:15] LABS: ALBUMIN 3.7 g/dL (3.4-5.0); ALBUMIN/GLOBULIN RATIO 0.9 (1.0-1.7); CALCIUM 9.1 mg/dL (8.5-10.1); CREATININE 0.7 mg/dL (0.6-1.0); GFR 102.8; POTASSIUM 3.5 mmol/L (3.5-5.1); TOTAL BILIRUBIN 0.3 mg/dL (0.2-1.0); TOTAL PROTEIN 7.8 g/dL (6.4-8.2)
--- NOTE | 2017-08-31 14:28 | EKG ---
[facility] [address] [place] [address] Test Date: 2017-08-31 Test Time: 13:32:56 Pat Name: GREGORIO WEBB Department: Room: Gender: F Hourly Caregiver: : 1990 Requested By: JARED GEE Order Number: [id number] Reading MD: Mika Figueroa Measurements Intervals [place] Rate: 66 P: 31 NE: 128 QRS: 89 QRSD: 84 T: 64 QT: 380 QTc: 400 Interpretive Statements SINUS RHYTHM Electronically Signed On 09-10-2017 14:12:17 WEDDING COORDINATOR by Mika Figueroa
[2017-08-31 15:17] VITALS: BP 104/66
== END 2017-08-31 15:20 | disposition home or self-care (01) ==
LOC: ER 12:13
DX: E86.0 Dehydration (principal); N92.1 Excessive and frequent menstruation with irregular cycle; J45.909 Unspecified asthma, uncomplicated; Z86.2 Personal history of diseases of the blood and blood-forming organs and certain disorders involving the immune mechanism; Z98.890 Other specified postprocedural states; Z98.51 Tubal ligation status; Z88.0 Allergy status to penicillin; Z88.1 Allergy status to other antibiotic agents
CPT/HCPCS: 36415; 80053; 81001; 81025; 85025; 93005; 96360; 96361; 99285; J7030

== ENCOUNTER 2017-10-15 10:09 | Emergency (ER) | payer SELFPAY, OTHER ==
[2017-10-15 12:45] LABS: INFLUENZA A PATIENT NEGATIVE (NEGATIVE); INFLUENZA B PATIENT NEGATIVE (NEGATIVE); OBC FLU VALID
== END 2017-10-15 13:13 | disposition home or self-care (01) ==
LOC: ER 10:09
DX: J20.9 Acute bronchitis, unspecified (principal); J45.909 Unspecified asthma, uncomplicated; F17.200 Nicotine dependence, unspecified, uncomplicated; Z88.0 Allergy status to penicillin; Z88.8 Allergy status to other drugs, medicaments and biological substances
CPT/HCPCS: 87804; 87804-59; 99284

== ENCOUNTER 2019-07-17 13:06 | Emergency (ER) | payer SELFPAY ==
[~2019-07-17] VITALS: Ht 162.6 cm; Wt 68.0 kg
[~2019-07-17 13:06] MED LIST changes: +BENZ100C PO; -OXYC-323 PO; +OXYC1TAB15 PO; +PRED20TA PO
[2019-07-17 13:30] VITALS: BP 124/78
[2019-07-17] MEDS ORDERED: AZIT500T4 PO (14:35)
--- NOTE | 2019-07-17 14:36 | PHYS DOC ---
Past Medical History Past Medical History: Anemia, Asthma, Other Additional Past Medical Histor: SEASONAL ALLERGIES; miscarriage, preeclampsia Past Surgical History: , Tubal ligation Alcohol Use: Rarely Drug Use: None Adult General Chief Complaint Chief Complaint: SORE THROAT HPI HPI Patient is a 28 year old female who presents to the emergency room with complaints of a sore throat, tactile fever, and body aches for the last 2 days. She denies any shortness of breath, abdominal pain, nausea, vomiting, diarrhea, cough, or wheezing. Patient currently rates her pain a 4 out of 10 on the pain scale, she denies any alleviating factors. Review of Systems Review of Systems Constitutional: Reports tactile fevers Eyes: Denies discharge, redness, or eye pain [] HENT: Denies nasal congestion or ear pain; see HPI Respiratory: Denies cough or shortness of breath [] Cardiovascular: No additional information not addressed in HPI [] GI: Denies abdominal pain, nausea, vomiting, or diarrhea [] Musculoskeletal: reports body aches Integument: Denies rash or skin lesions [] Neurologic: Denies headache All other systems were reviewed and found to be within normal limits, except as documented in this note. Allergies Allergies Allergies Coded Allergies Type Severity Reaction Last Updated Verified Penicillins Allergy Intermediate 10/11/16 Yes cefaclor Allergy Intermediate 10/11/16 Yes Physical Exam Physical Exam Constitutional: Well developed, well nourished, no acute distress, non-toxic appearance. [] HENT: Normocephalic, atraumatic, bilateral external ears normal, bilateral TMs normal, 2+ tonsils bilat with erythema and exudate present, oropharynx moist, no oral exudates, nose normal. [] Eyes: PERRLA, EOMI, conjunctiva normal, no discharge. [] Neck: Normal range of motion, bilateral anterior cervical chain lymphadenopathy with tenderness, supple, no stridor. [] Cardiovascular:Heart rate regular rhythm, no murmur [] Lungs & Thorax: Bilateral breath sounds clear to auscultation [] Skin: Warm, dry, no erythema, no rash. [] Back: No tenderness Extremities: No cyanosis, ROM intact, no edema. [] Neurologic: Alert and oriented X 3, no focal deficits noted. [] Psychologic: Affect normal, judgement normal, mood normal. [] EKG EKG [] Radiology/Procedures Radiology/Procedures [] Course & Med Decision Making Course & Med Decision Making Pertinent Labs and Imaging studies reviewed. (See chart for details) [] Dragon Disclaimer Dragon Disclaimer This electronic medical record was generated, in whole or in part, using a voice recognition dictation system. Departure Departure Impression: Primary Impression: Pharyngitis, acute Disposition: HOME, SELF-CARE Condition: STABLE Referrals: NO PCP (PCP) Patient Instructions: Viral and Bacterial Pharyngitis, [id number] Additional Instructions: Fill prescription and use as directed. Recommend warm salt water gargles as needed for relief of discomfort. Alternate Tylenol and ibuprofen as needed for fever/pain. Discard your toothbrush tomorrow and begin using a new toothbrush. Follow-up with primary care doctor if symptoms persist. Return to the ER if symptoms worsen. Scripts Azithromycin (AZITHROMYCIN TABLET) 500 Mg Tablet 1 TAB PO DAILY for 5 Days, #5 TAB 0 Refills Prov: ELDON OROZCO APRN 07/17/19 Problem Qualifiers Primary Impression: Pharyngitis, acute Pharyngitis/tonsillitis etiology: unspecified etiology Qualified Codes: J02.9 - Acute pharyngitis, unspecified EDLON OROZCO LITIGATION COUNSEL Jul 17, 2019 14:36
== END 2019-07-17 15:13 | disposition home or self-care (01) ==
LOC: ER 13:06
DX: J02.9 Acute pharyngitis, unspecified (principal); M79.10 Myalgia, unspecified site; R50.9 Fever, unspecified; J45.909 Unspecified asthma, uncomplicated; Z88.0 Allergy status to penicillin; Z88.8 Allergy status to other drugs, medicaments and biological substances
CPT/HCPCS: 99283

== ENCOUNTER 2019-07-30 16:24 | Emergency (ER) | payer SELFPAY ==
[~2019-07-30] VITALS: Ht 162.6 cm; Wt 68.0 kg
[~2019-07-30 16:24] MED LIST changes: +AZIT500T4 PO
[2019-07-30] MEDS ORDERED: KETOROLAC 30 MG/ML VIAL. IM STA (16:36)
--- NOTE | 2019-07-30 16:38 | PHYS DOC ---
Past Medical History Past Medical History: Anemia, Asthma, Other Additional Past Medical Histor: SEASONAL ALLERGIES; miscarriage, preeclampsia Past Surgical History: , Tubal ligation Alcohol Use: Rarely Drug Use: None Adult General Chief Complaint Chief Complaint: KNEE INJURY HPI HPI Patient is a 28 year old female that presents to the emergency Department with right knee pain. Patient states yesterday she was at work at [employer] and she is running a corner she hit her knee against the corner of a wall. She states that she did this her right knee twisted inwards. The patient's been having anterior patellar pain since that time. She rates her pain as 7 out of 10 in severity and sharp. No other complaints. Review of Systems Review of Systems Constitutional: Denies fever or chills [] Eyes: Denies change in visual acuity, redness, or eye pain [] HENT: Denies nasal congestion or sore throat [] Respiratory: Denies cough or shortness of breath [] Cardiovascular: No additional information not addressed in HPI [] GI: Denies abdominal pain, nausea, vomiting, bloody stools or diarrhea [] : Denies dysuria or hematuria [] Musculoskeletal: Reports R knee pain. Integument: Denies rash or skin lesions [] Neurologic: Denies headache, focal weakness or sensory changes [] Endocrine: Denies polyuria or polydipsia [] Complete systems were reviewed and found to be within normal limits, except as documented in this note. Current Medications Current Medications Current Medications Medications (Trade) Dose Ordered Sig/Segun Start Time Stop Time Status Last Admin Dose Admin Ketorolac Tromethamine (Toradol 30mg Vial) 30 mg 1X STAT 07/30/19 16:36 07/30/19 16:37 DC Allergies Allergies Allergies Coded Allergies Type Severity Reaction Last Updated Verified Penicillins Allergy Intermediate 10/11/16 Yes cefaclor Allergy Intermediate 10/11/16 Yes Physical Exam Physical Exam Constitutional: Well developed, well nourished, no acute distress, non-toxic appearance. [] HENT: Normocephalic, atraumatic, bilateral external ears normal, oropharynx moist, no oral exudates, nose normal. [] Eyes: PERRLA, EOMI, conjunctiva normal, no discharge. [] Neck: Normal range of motion, no tenderness, supple, no stridor. [] Cardiovascular:Heart rate regular rhythm, no murmur [] Lungs & Thorax: Bilateral breath sounds clear to auscultation [] Abdomen: Bowel sounds normal, soft, no tenderness, no masses, no pulsatile masses. [] Skin: Warm, dry, no erythema, no rash. [] Back: No tenderness, no CVA tenderness. [] Extremities: Tenderness to R knee near the patella. -anterior drawer sign. Neurologic: Alert and oriented X 3, normal motor function, normal sensory function, no focal deficits noted. [] Psychologic: Affect normal, judgement normal, mood normal. [] EKG EKG [] Radiology/Procedures Radiology/Procedures [facility] [address] [place] [address] IMAGING REPORT Signed PATIENT: GREGORIO WEBB ACCOUNT: [id number] : 1990 LOCATION: ER AGE: 28 SEX: F EXAM STATUS: REG ER ORD. PHYSICIAN: CHAITANYA QUINN APRN REASON: trauma to R knee, anterior pain near patella. PROCEDURE: KNEE RIGHT 4V Study: KNEE RIGHT 4V Indication: Trauma. Anterior pain. Comparison: None. Findings: No acute fracture. Alignment is maintained. Normal osseous mineralization. No significant knee joint effusion. Impression: No acute osseous abnormality. Electronically signed by: KATHYA ESPINOZA MD (07/30/2019 5:19 PM) [facility] [place] DICTATED and SIGNED BY: KATHYA ESPINOZA MD DATE: 07/30/19 7465 Course & Med Decision Making Course & Med Decision Making Pertinent Labs and Imaging studies reviewed. (See chart for details) Will get x-ray and give Toradol. X-ray is negative. Will d/c home. Dragon Disclaimer Dragon Disclaimer This electronic medical record was generated, in whole or in part, using a voice recognition dictation system. Departure Departure Impression: Primary Impression: Knee pain, right Disposition: HOME, SELF-CARE Condition: STABLE Referrals: NO PCP (PCP) Patient Instructions: Knee Pain Additional Instructions: Thank you for visiting [facility]. We appreciate you trusting us with your care. If any additional problems come up don't hesitate to return to visit us. Please follow up with your primary care provider so they can plan additional care if needed and know about the problem that you had. If symptoms worsen come back to the Emergency Department. Any concerning symptoms that start such as chest pain, shortness of air, weakness or numbness on one side of the body, running high fevers or any other concerning symptoms return to the ER. Problem Qualifiers Primary Impression: Knee pain, right Chronicity: acute Qualified Codes: M25.561 - Pain in right knee CHAITANYA QUINN APRN Jul 30, 2019 16:38
[2019-07-30 17:02] VITALS: BP 130/81
--- NOTE | 2019-07-30 17:21 | RAD ---
Study: KNEE RIGHT 4V Indication: Trauma. Anterior pain. Comparison: None. Findings: No acute fracture. Alignment is maintained. Normal osseous mineralization. No significant knee joint effusion. Impression: No acute osseous abnormality. Electronically signed by: KATHYA ESPINOZA MD (07/30/2019 5:19 PM) [facility] [place]
== END 2019-07-30 17:24 | disposition home or self-care (01) ==
LOC: ER 16:24
DX: M25.561 Pain in right knee (principal); G89.11 Acute pain due to trauma; J45.909 Unspecified asthma, uncomplicated; Z88.0 Allergy status to penicillin; Z88.8 Allergy status to other drugs, medicaments and biological substances; W22.8XXA Striking against or struck by other objects, initial encounter; Y93.02 Activity, running; Y92.69 Other specified industrial and construction area as the place of occurrence of the external cause; Y99.8 Other external cause status
CPT/HCPCS: 73564; 96372; 99284; J1885

== ENCOUNTER 2019-10-23 11:29 | Emergency (ER) | payer SELFPAY ==
[2019-10-23 11:59] VITALS: BP 134/63
--- NOTE | 2019-10-23 12:08 | PHYS DOC ---
Past Medical History Past Medical History: Anemia, Asthma, Other Additional Past Medical Histor: SEASONAL ALLERGIES; miscarriage, preeclampsia Past Surgical History: , Tubal ligation Alcohol Use: Rarely Drug Use: None Adult General Chief Complaint Chief Complaint: FLU SYMPTOM HPI HPI Patient is a 28 year old female who presents with [cough, congestion for the last 5 days. Patient reports she just felt tired, achy, with a dry nonproductive cough. Has tried to take some [id number] cough medications. Reports she has had a low-grade fever at home recently. Reports a daughter, similar symptoms now. Denies any sore throat. Denies any headache. States she does have the chest discomfort when she is coughing now however nothing resting.] Review of Systems Review of Systems Constitutional: Reports low-grade fever, occasional body aches[] Eyes: Denies change in visual acuity, redness, or eye pain [] HENT: Denies nasal congestion or sore throat [] Respiratory: Denies shortness of breath, reports cough[] Cardiovascular: No additional information not addressed in HPI [] GI: Denies abdominal pain, nausea, vomiting, bloody stools or diarrhea [] : Denies dysuria or hematuria [] Musculoskeletal: Denies back pain or joint pain [] Integument: Denies rash or skin lesions [] Neurologic: Denies headache, focal weakness or sensory changes [] Endocrine: Denies polyuria or polydipsia [] All other systems were reviewed and found to be within normal limits, except as documented in this note. Allergies Allergies Allergies Coded Allergies Type Severity Reaction Last Updated Verified Penicillins Allergy Intermediate 10/11/16 Yes cefaclor Allergy Intermediate 10/11/16 Yes Physical Exam Physical Exam Constitutional: Well developed, well nourished, no acute distress, non-toxic appearance. [] HENT: Normocephalic, atraumatic, bilateral external ears normal, oropharynx moist, no oral exudates, nose normal. Tonsils 1+, no purulence, no erythema noted, no hoarse voice noted[] Eyes: PERRLA, EOMI, conjunctiva normal, no discharge. [] Neck: Normal range of motion, no tenderness, supple, no stridor. [] Cardiovascular:Heart rate regular rhythm, no murmur [] Lungs & Thorax: Bilateral breath sounds clear to auscultation [] Abdomen: Bowel sounds normal, soft, no tenderness, no masses, no pulsatile masses. [] Skin: Warm, dry, no erythema, no rash. [] Back: No tenderness, no CVA tenderness. [] Extremities: No tenderness, no cyanosis, no clubbing, ROM intact, no edema. [] Neurologic: Alert and oriented X 3, normal motor function, normal sensory function, no focal deficits noted. [] Psychologic: Affect normal, judgement normal, mood normal. [] Current Patient Data Vital Signs Vital Signs Date Time Temp Pulse Resp B/P (MAP) Pulse Ox O2 Delivery O2 Flow Rate FiO2 10/23/19 11:59 98.5 96 22 134/63 (86) 96 Room Air 98.5 EKG EKG [] Radiology/Procedures Radiology/Procedures [] Course & Med Decision Making Course & Med Decision Making Pertinent Labs and Imaging studies reviewed. (See chart for details) [Patient daughter was noted influenza B, believe patient to have had influenza, however is outside of the treatment window for Tamiflu. We'll provide patient with cough medication. Patient to increase hydration, follow-up with primary care.] Dragon Disclaimer Dragon Disclaimer This electronic medical record was generated, in whole or in part, using a voice recognition dictation system. Departure Departure Impression: Primary Impression: Influenza B Disposition: 01 HOME, SELF-CARE Condition: STABLE Referrals: NO PCP (PCP) Patient Instructions: Influenza A (H1N1) Additional Instructions: As we discussed, make sure he stay hydrated. Drink plenty of fluids. Take cough medication as prescribed. He may also take other cough medication [id number] as he had been taking previously. Follow-up with your primary care provider as needed Scripts D-Methorphan Hb/Prometh Hcl (PROMETHAZINE-DM SYRUP) 118 Ml Syrup 5 ML PO PRN Q4HRS PRN for cough for 4 Days, #120 ML 0 Refills Prov: EUSEBIA LEROY APRN 10/23/19 EUSEBIA LEROY APRN Oct 23, 2019 12:08
[2019-10-23] MEDS ORDERED: PROM118S9 PO (12:57)
== END 2019-10-23 13:06 | disposition home or self-care (01) ==
LOC: ER 11:29
DX: J10.1 Influenza due to other identified influenza virus with other respiratory manifestations (principal); R05 Cough; R07.89 Other chest pain; R09.81 Nasal congestion; R50.9 Fever, unspecified; J45.909 Unspecified asthma, uncomplicated; J30.2 Other seasonal allergic rhinitis; Z98.51 Tubal ligation status; Z98.890 Other specified postprocedural states; Z88.0 Allergy status to penicillin; Z88.1 Allergy status to other antibiotic agents
CPT/HCPCS: 99283